=== PATIENT | female | born 1960 | race Caucasian/White ===

== ENCOUNTER 2025-02-01 20:08 | Inpatient (IN) | payer MEDICARE, MEDICAID, SELFPAY ==
--- NOTE | ~2025-02-01 | CT_ITS ---
CLINICAL HISTORY: Unwitnessed fall CT cervical spine without contrast Comparison: None Findings: Normal limited view of the intracranial contents. Soft tissues of the neck are normal. Lung apices are normal. 3 mm anterolisthesis C3 on C4 appears degenerative in nature. Otherwise, maintained vertebral body alignment. No fractures or dislocations. Diffuse degenerative disc changes are present C3-C7. Bilateral facet arthropathy is present.. Impression: 1. No cervical vertebral fracture or traumatic malalignment. This document has been electronically signed by: Jack Toure MD on 03/03/2025 15:48:14
--- NOTE | ~2025-02-01 | XR_ITS ---
EXAMINATION: XR LUMBOSACRAL SPINE CLINICAL INFORMATION: chronic low back pain COMPARISON: None available. TECHNIQUE: Three views of the lumbosacral spine. FINDINGS: Moderate atherosclerotic calcifications are present in the aorta and common iliac arteries. There are moderate degenerative changes in the SI joints. There are 5 nonrib-bearing lumbar segments. There is 31 degrees dextroscoliosis of thoracolumbar junction and 20 degrees levoscoliosis in the lumbar spine. T12-L1: There is mild disc space narrowing. L1-L2: There is mild to moderate disc space narrowing with endplate sclerosis and osteophytes L2-L3: There is mild disc space narrowing and subtle retrolisthesis with endplate osteophytes.. There is minimal right lateral listhesis L3-L4: There is mild grade 1 retrolisthesis with mild disc space narrowing and endplate sclerosis with osteophytes. L4-L5: There is moderate disc space narrowing and endplate sclerosis. There is grade 1 anterolisthesis and facet sclerosis. L5-S1: There is mild disc space narrowing with endplate osteophytes and facet sclerosis. XR/XR lumbar spine 2-3V IMPRESSION: Moderate S-shaped scoliosis with multilevel degenerative disc disease and facet osteoarthritis. Additionally, there is grade 1 anterolisthesis at L4-5. Electronically signed by: Mitesh Bueno MD 03/06/2025 12:19 PM KARL
--- NOTE | ~2025-02-01 | MR_ITS ---
EXAMINATION: MR BRAIN WITHOUT CONTRAST CLINICAL INFORMATION: Rule out dementia . Multiple head injury history, altered mental status. COMPARISON: None available. TECHNIQUE: MRI of the brain was obtained using routine sequences without contrast. Examination performed on a 1.5 Kari Siemens high-field unit. FINDINGS: There is no diffusion restriction. There is no intracranial hemorrhage, acute infarction, mass effect, or edema. Ventricles, sulci, and cisterns are mildly diffusely prominent, in keeping with mildly age advanced cerebral and cerebellar volume loss. No hydrocephalus. No shift of midline. No abnormal hemosiderin deposition is identified. There are a few scattered punctate foci of white matter T2 hyperintensity in the periventricular, subcortical, and hemispheric deep white matter. These foci are nonspecific but statistically most likely relate to small vessel ischemic changes. Midline structures appear normally formed. The pituitary gland appears normal. Posterior fossa structures appear normal. Cerebellar tonsils are appropriately located. Major flow voids are preserved within the skull base. The globes and orbital contents demonstrate no abnormalities. Paranasal sinuses are clear bilaterally. The mastoids and tympanic cavities are normally aerated. Extracranial soft tissues demonstrate no abnormalities. No suspicious bone marrow changes are evident. Atlantoaxial joint is normal. MR/MR head/brain wo con IMPRESSION: 1. No evidence of intracranial hemorrhage, acute infarction, mass effect, or edema. 2. Mildly age advanced cerebral and cerebellar volume loss. 3. Mild changes of small vessel ischemia. Electronically signed by: Freeman López MD 02/09/2025 04:20 PM EDT
--- NOTE | ~2025-02-01 | CT_ITS ---
CLINICAL HISTORY: Unwitnessed fall CT head without contrast Comparison: 02/15/2025 Findings: No intracranial mass, midline shift, hydrocephalus, or acute hemorrhage. No CT evidence of acute ischemia. Visualized paranasal sinuses and mastoid air cells normal. Orbits unremarkable. No skull fracture. Impression: 1. No acute intracranial abnormalities. This document has been electronically signed by: Jack Toure MD on 03/03/2025 15:43:46
--- NOTE | ~2025-02-01 | NM_ITS ---
EXAMINATION: NEUROLITE SPECT BRAIN SCAN CLINICAL INFORMATION: Severe cognitive dysfunction. COMPARISON: MRI brain 02/09/2025 TECHNIQUE: Following intravenous administration of 30 mCi of 99m technetium Neurolite, brain SPECT and CT imaging was obtained 30 minutes post injection. DLP 196. Color fusion with CT was performed on a separate workstation. FINDINGS: On brain SPECT imaging there is slight decreased bilateral frontal perfusion activity left greater than right which corresponds to bifrontal volume loss on recent MRI brain exam. There is mild decreased activity in left thalamus, left jeremy and midbrain. There is symmetrical perfusion in bilateral cerebellar hemispheres, bilateral occipital, temporal and posterior parietal lobes. On CT the lateral ventricles are symmetrical and slightly enlarged. The baez to white matter differentiation and bilateral cerebral hemispheres maintain normal. No acute bleed or acute infarction in evolution seen. No abnormality seen in the posterior fossa. No gross bony abnormality seen. The sinuses and mastoid air cells are well-aerated and clear. Mild deviation nasal septum to the left is noted. NM/NM brain SPECT IMPRESSION: Decreased bifrontal perfusion greater on the left side. Decrease perfusion in left thalamus, left jeremy and midbrain. This could be secondary to patient being dominant right handed. CT reveals no acute intracranial process. There is however mild bilateral frontal volume loss. Electronically signed by: Jose Luis Gardiner MD 02/16/2025 11:15 AM EDT
[2025-02-01 21:35] VITALS: BP 185/92; PULSE 82
--- NOTE | 2025-02-01 21:41 | PC.ADMIT ---
patient arrived on unit 02/01/25 at 2030 on a stretch with a 12b. she knows her name, time of year and that he came from [facility] but was otherwise very confused, patient presented with SI with plan to OD on medications. Patient states she had no intention of following through with it, she was anxious, cooperative with admission, skin clear with no edema or bruises, VS 185/92, HR 82, r 18, SAO2 97%@RA, 97f, Medical: HTN, Chronic Pain, , COPD, GERD, Hyperlipidemia, PSYCH: Depression with Aniety, Mood d/o, she ate dinner, was oriented to unit, took HD medications and went to bed
--- NOTE | 2025-02-01 21:46 | HE.PHANOTE ---
RE: METHADONE DOSING Last dose of methadone 27 mg was given @0813 on 02/01/25 per Marge Dean RN at [facility].
[2025-02-01 22:55] VITALS: BMI 22.0
[2025-02-02 08:00] VITALS: BP 143/91; PULSE 67; RESP 16; TEMP 36.6; O2SAT 93
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
[2025-02-02 08:34] LABS: Hemoglobin A1C 121.3681 umol/L
[2025-02-02 09:05] LABS: Alanine Aminotransferase 6 U/L (0-31); Albumin Level 3.3 g/dL (3.5-5.0); Alkaline Phosphatase 51 U/L (39-117); Anion Gap 10 (12-20); Aspartate Amino Transferase 21 U/L (5-31); Blood Urea Nitrogen 18 mg/dL (9-16); Calcium 8.8 mg/dL (8.4-10.2); Carbon Dioxide 25 mmol/L (22-29); Chloride 112 mmol/L (96-108); Cholesterol 143 mg/dL (<200); Creatinine Clr Calc Pharmacy 49.7; Estimated Glomerular Filt Rate > 60; HDL Cholesterol 46 mg/dL (>40); Potassium 3.7 mmol/L (3.3-5.1); Sodium 143 mmol/L (135-145); Total Protein 5.5 g/dL (6.5-8.0); Triglycerides 75 mg/dL (<150)
[2025-02-02 09:13] LABS: Thyroid Stimulating Hormone 0.90 uIU/mL (0.32-4.0)
[2025-02-02] MEDS: methADONE HCl 20 MG/2 ML ORAL.CONC 25 MG PO (09:23)
[2025-02-02 09:31] LABS: Folate 6.1 ng/mL (> or = 4.0); Vitamin B12 1479 pg/mL (200-900)
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
--- NOTE | 2025-02-02 16:21 | P.PNPSI_ITS ---
Subjective Subjective Reason For Visit: F05.8, F31.81 Diagnostics Vital Signs (24Hr): Vital Signs - 24 hr 02/01/25 21:35 02/02/25 08:00 Temperature 97.9 F Pulse Rate 82 67 Respiratory Rate 16 Blood Pressure 185/92 H 143/91 H Pulse Oximetry 93 BMI result Body Mass Index 22.0 Labs 02/02/25 07:36 Labs: Laboratory Results - last 48 hr 02/02/25 07:36 Sodium 143 Potassium 3.7 Chloride 112 H Carbon Dioxide 25 Anion Gap 10 L BUN 18 H Creatinine 0.92 Estim Creat Clear Calc 49.7 Estimated GFR > 60 Random Glucose 75 Estimat Average Glucose 123 Hemoglobin A1c % 5.9 Calcium 8.8 Total Bilirubin 0.2 AST 21 ALT 6 Alkaline Phosphatase 51 Total Protein 5.5 L Albumin 3.3 L Triglycerides 75 Cholesterol 143 LDL Cholesterol, Calc 82 HDL Cholesterol 46 Vitamin B12 1479 H Folate 6.1 TSH 0.90 Medications Medications Current Medications Acetaminophen (Acetaminophen 325 Mg Tablet) 650 mg PO Q6H PRN PRN Reason: Headache/Pain, Scale 1-10 Al Hydroxide/Mg Hydroxide (Magnesium Hydrox/Alum Hydrox 30 Ml Oral.Susp) 30 ml PO Q6H PRN PRN Reason: Heartburn/Nausea Albuterol Sulfate (Albuterol Sulfate 90 Mcg 8 Gm Inhaler) 2 puff INHALE Q4H PRN PRN Reason: Wheezing Atorvastatin Calcium (Atorvastatin Calcium 80 Mg Tablet) 80 mg PO DAILY [facility] Last Admin: 02/02/25 09:34 Dose: 80 mg Clonazepam (Clonazepam 0.5 Mg Tablet) 0.5 mg PO BID PRN PRN Reason: Anxiety Last Admin: 02/02/25 09:34 Dose: 0.5 mg Clonidine HCl (Clonidine Hcl 0.2 Mg Tablet) 0.2 mg PO TID PRN; Protocol PRN Reason: Anxiety Gabapentin (Gabapentin 600 Mg Tablet) 600 mg PO TID [facility] Last Admin: 02/02/25 15:21 Dose: 600 mg Hydroxyzine HCl (Hydroxyzine Hcl 25 Mg Tablet) 25 mg PO Q6H PRN PRN Reason: mild anxiety Magnesium Hydroxide (Milk Of Magnesia 30 Ml Oral.Susp) 30 ml PO DAILY PRN PRN Reason: Constipation Methadone HCl (Methadone Hcl 20 Mg/2 Ml Oral.Conc) 25 mg PO DAILY [facility] Last Admin: 02/02/25 09:23 Dose: 25 mg Omeprazole (Omeprazole 20 Mg Capsule.) 20 mg PO BID@0630,1630 [facility] Propranolol HCl (Propranolol Hcl 20 Mg Tablet) 20 mg PO BID [facility]; Protocol Last Admin: 02/02/25 09:23 Dose: 20 mg Spironolactone (Spironolactone 25 Mg Tablet) 50 mg PO DAILY [facility]; Protocol Last Admin: 02/02/25 09:34 Dose: 50 mg Trazodone HCl (Trazodone Hcl 50 Mg Tablet) 50 mg PO BEDTIME MRX1 PRN PRN Reason: Insomnia Valsartan (Valsartan 80 Mg Tablet) 80 mg PO DAILY [facility]; Protocol Last Admin: 02/02/25 09:34 Dose: 80 mg Allergies Allergies Allergy/AdvReac Type Severity Reaction Status Date / Time ceftriaxone (From [facility]) AdvReac Severe Unknown Verified 02/01/25 20:31 lithium AdvReac Severe Unknown Verified 02/01/25 20:30 tiotropium AdvReac Severe Unknown Verified 02/01/25 20:31 trazodone AdvReac Severe Unknown Verified 02/01/25 20:30 quetiapine AdvReac Intermediate Unknown Verified 02/01/25 20:29 nefazodone AdvReac Unknown Verified 02/01/25 20:29 Assessment & Plan Assessment & Plan (1) Delirium due to medical condition with behavioral disturbance: Status: Acute Code(s): F05 - Delirium due to known physiological condition (2) Bipolar disorder, most recent episode depressed: Status: Acute Code(s): F31.30 - Bipolar disorder, current episode depressed, mild or moderate severity, unspecified (3) Suicide attempt by drug overdose: Status: Acute Code(s): T50.902A - Poisoning by unspecified drugs, medicaments and biological substances, intentional self-harm, initial encounter Plan Ms. Rodriguez is a 64 yo F with h/o bipolar d/o, anxiety, prior suicide attempts, chronic pain on methadone, HTN, SIADH, neuropathy, HLD & COPD who presented to [facility] ED after intentional o/d on propranolol, clonidine, and clonazepam. She was transferred to [facility] for tx of depression. Per [facility] notes, delirium has improved. She is confused today. She does not have capacity to sign a CV due to her confused state. Plan: Admitted to [facility] psych unit for safety and stabilization Legal Status: 12B, given lack of capacity to sign a CV in setting of delirium Meds: Resume valproic acid 1000 mg qhs and olanzapine at 7.5 mg qhs + 7.5 mg bid prn for agitation (started at [facility]) Will lower clonazepam dose from home dose of .5 mg bid prn to 0.25 mg bid prn for now, given pt's ongoing confusion. Dose can be titrated back up to .5 mg when mental status improves if clinically appropriate. Continue home meds including: clonidine .2 mg tid prn for anxiety with holding parameters gabapentin 600 mg tid (for chronic pain) methadone 27 mg qd (rx'd for chronic pain) pantoprazole 40 mg bid propranolol 20- mg bid spironolactone 50 mg qd valsartan 80 mg qd albuterol 90 mcg 2 puff q 4 hrs prn for wheezing atorvastatin 80 mg qd Ordered EKG to monitor QTc (had been prolonged at [facility] and then normalized) [facility] Can check VPA level on Wednesday am. Pt didn't receive it last night, was started on VPA at [facility] Obtain collateral information from family/providers Discharge planning Patient educated on: diagnosis Time Spent With Patient Time: Total time managing care of this patient today ____ minutes.
[2025-02-02 17:39] LABS: Ammonia 19 umol/L (13-55)
[2025-02-02 20:00] VITALS: BP 149/79; PULSE 66; RESP 16; TEMP 36.6; O2SAT 95
[2025-02-02 21:05] VITALS: BP 149/79; PULSE 68
[2025-02-03 08:00] VITALS: BP 151/96; PULSE 72; RESP 16; TEMP 36.2; O2SAT 99
[2025-02-03] MEDS: methADONE HCl 20 MG/2 ML ORAL.CONC 25 MG PO (08:05)
--- NOTE | 2025-02-03 16:25 | P.PNPSI_ITS ---
Subjective Subjective Date of Service: 02/03/25 Reason For Visit: F05.8, F31.81 Interim History: met with patient; discussed with team Patient pleasant on approach. Denies any SI and reports that she is doing very good.. Patient talks about when discharged wants to be placed somewhere closer to [facility], near her family Mental Status Exam Mental Status Exam Narrative: Appearance: Lying in bed awake. Dressed in casual attire. Good eye contact. Attitude: Cooperative, pleasant Speech: Occasional latency/word finding difficulty, otherwise within normal limits Motor activity: Calm and without any tics, tremors or dyskinesias. Mood: Very good Affect: calm Thought process: Goal oriented; answering questions appropriately Thought content: ; denies SI; wanting to be near family Perception: Does not appear to respond to internal stimuli Alert/oriented to person, being at a hospital Memory- not fully tested. Impaired for recent events Insight: impaired Judgment: impaired Diagnostics Vital Signs (24Hr): Vital Signs - 24 hr 02/02/25 20:00 02/02/25 21:05 02/03/25 08:00 Temperature 97.9 F 97.2 F Pulse Rate 66 68 72 Respiratory Rate 16 16 Blood Pressure 149/79 H 149/79 H 151/96 H Pulse Oximetry 95 99 Oxygen Delivery Method Room Air Room Air BMI result Body Mass Index 22.0 Labs 02/02/25 07:36 Labs: Laboratory Results - last 48 hr 02/02/25 02/02/25 07:36 17:25 Sodium 143 Potassium 3.7 Chloride 112 H Carbon Dioxide 25 Anion Gap 10 L BUN 18 H Creatinine 0.92 Estim Creat Clear Calc 49.7 Estimated GFR > 60 Random Glucose 75 Estimat Average Glucose 123 Hemoglobin A1c % 5.9 Calcium 8.8 Total Bilirubin 0.2 AST 21 ALT 6 Alkaline Phosphatase 51 Ammonia 19 Total Protein 5.5 L Albumin 3.3 L Triglycerides 75 Cholesterol 143 LDL Cholesterol, Calc 82 HDL Cholesterol 46 Vitamin B12 1479 H Folate 6.1 TSH 0.90 Medications Medications Current Medications Acetaminophen (Acetaminophen 325 Mg Tablet) 650 mg PO Q6H PRN PRN Reason: Headache/Pain, Scale 1-10 Last Admin: 02/02/25 23:55 Dose: 650 mg Al Hydroxide/Mg Hydroxide (Magnesium Hydrox/Alum Hydrox 30 Ml Oral.Susp) 30 ml PO Q6H PRN PRN Reason: Heartburn/Nausea Albuterol Sulfate (Albuterol Sulfate 90 Mcg 8 Gm Inhaler) 2 puff INHALE Q4H PRN PRN Reason: Wheezing Atorvastatin Calcium (Atorvastatin Calcium 80 Mg Tablet) 80 mg PO DAILY [facility] Last Admin: 02/03/25 08:07 Dose: 80 mg Clonazepam (Clonazepam 0.5 Mg Tablet) 0.25 mg PO BID PRN PRN Reason: Anxiety Last Admin: 02/03/25 08:06 Dose: 0.25 mg Clonidine HCl (Clonidine Hcl 0.2 Mg Tablet) 0.2 mg PO TID PRN; Protocol PRN Reason: Anxiety Divalproex Sodium (Divalproex Sodium Er 500 Mg Tab.Er.24h) 1,000 mg PO BEDTIME [facility] Last Admin: 02/02/25 21:06 Dose: 1,000 mg Gabapentin (Gabapentin 600 Mg Tablet) 600 mg PO TID [facility] Last Admin: 02/03/25 14:15 Dose: 600 mg Magnesium Hydroxide (Milk Of Magnesia 30 Ml Oral.Susp) 30 ml PO DAILY PRN PRN Reason: Constipation Methadone HCl (Methadone Hcl 20 Mg/2 Ml Oral.Conc) 25 mg PO DAILY [facility] Last Admin: 02/03/25 08:05 Dose: 25 mg Olanzapine (Olanzapine 7.5 Mg Tablet) 7.5 mg PO BEDTIME PRN PRN Reason: agitation Olanzapine (Olanzapine 2.5 Mg Tablet) 7.5 mg PO BID [facility] Last Admin: 02/03/25 08:06 Dose: 7.5 mg Omeprazole (Omeprazole 20 Mg Capsule.Dr) 20 mg PO BID@0630,1630 [facility] Last Admin: 02/03/25 16:00 Dose: 20 mg Propranolol HCl (Propranolol Hcl 20 Mg Tablet) 20 mg PO BID [facility]; Protocol Last Admin: 02/03/25 09:52 Dose: Not Given Spironolactone (Spironolactone 25 Mg Tablet) 50 mg PO DAILY [facility]; Protocol Last Admin: 02/03/25 08:06 Dose: 50 mg Trazodone HCl (Trazodone Hcl 50 Mg Tablet) 50 mg PO BEDTIME MRX1 PRN PRN Reason: Insomnia Valsartan (Valsartan 80 Mg Tablet) 80 mg PO DAILY [facility]; Protocol Last Admin: 02/03/25 08:07 Dose: 80 mg Allergies Allergies Allergy/AdvReac Type Severity Reaction Status Date / Time ceftriaxone (From [facility]) AdvReac Severe Unknown Verified 02/01/25 20:31 lithium AdvReac Severe Unknown Verified 02/01/25 20:30 tiotropium AdvReac Severe Unknown Verified 02/01/25 20:31 trazodone AdvReac Severe Unknown Verified 02/01/25 20:30 quetiapine AdvReac Intermediate Unknown Verified 02/01/25 20:29 nefazodone AdvReac Unknown Verified 02/01/25 20:29 Assessment & Plan Assessment & Plan (1) Delirium due to medical condition with behavioral disturbance: Status: Acute Code(s): F05 - Delirium due to known physiological condition (2) Bipolar disorder, most recent episode depressed: Status: Acute Code(s): F31.30 - Bipolar disorder, current episode depressed, mild or moderate severity, unspecified (3) Suicide attempt by drug overdose: Status: Acute Code(s): T50.902A - Poisoning by unspecified drugs, medicaments and biological substances, intentional self-harm, initial encounter Plan Ms. Rodriguez is a 64 yo F with h/o bipolar d/o, anxiety, prior suicide attempts, chronic pain on methadone, HTN, SIADH, neuropathy, HLD & COPD who presented to [facility] ED after intentional o/d on propranolol, clonidine, and clonazepam. She was transferred to [facility] psych unit for tx of depression. Per [facility] notes, delirium has improved. She is confused today. She does not have capacity to sign a CV due to her confused state. Plan: Admitted to [facility] psych [facility] for safety and stabilization Legal Status: 12B, given lack of capacity to sign a CV in setting of delirium Meds: Resume valproic acid 1000 mg qhs and olanzapine at 7.5 mg qhs + 7.5 mg bid prn for agitation (started at [facility]) Will lower clonazepam dose from home dose of .5 mg bid prn to 0.25 mg bid prn for now, given pt's ongoing confusion. Dose can be titrated back up to .5 mg when mental status improves if clinically appropriate. Continue home meds including: clonidine .2 mg tid prn for anxiety with holding parameters gabapentin 600 mg tid (for chronic pain) methadone 27 mg qd (rx'd for chronic pain) pantoprazole 40 mg bid propranolol 20- mg bid spironolactone 50 mg qd valsartan 80 mg qd albuterol 90 mcg 2 puff q 4 hrs prn for wheezing atorvastatin 80 mg qd Ordered EKG to monitor QTc (had been prolonged at [facility] and then normalized) Ordered ammonia level with the Depakote. Can check VPA level on Wednesday am. Pt didn't receive it last night, was started on VPA at [facility] Obtain collateral information from family/providers Discharge planning Patient educated on: diagnosis Informed Consent: understands, does not understand and further education needed Reason for continued inpatient stay Substantial Risk for: inability to function Time Spent With Patient Time: Total time managing care of this patient today ____ minutes.
[2025-02-03 20:00] VITALS: BP 181/97; PULSE 90; TEMP 36.1; O2SAT 98
[2025-02-03 20:26] VITALS: BP 181/97; PULSE 90
[2025-02-04 07:55] VITALS: BP 160/100; PULSE 80; RESP 18; TEMP 36.6; O2SAT 98
[2025-02-04] MEDS: methADONE HCl 20 MG/2 ML ORAL.CONC 25 MG PO (08:39)
[2025-02-04 10:20] VITALS: BP 180/98
[2025-02-04 19:40] VITALS: BP 120/83; PULSE 51; RESP 17; TEMP 36.9; O2SAT 99
[2025-02-04 20:29] VITALS: BP 120/83
--- NOTE | 2025-02-04 22:21 | HO.PSYCHPN ---
Subjective Subjective Date of Service: 02/04/25 Reason For Visit: F05.8, F31.81 Interim History: Met with patient; discussed with team No change in presentation. Patient lying in bed awake; pleasant on approach. Talks about hoping to end up near family. Asks what time of day it is and when told 06:00, asks if it 6 in the morning her 6 at night Mental Status Exam Mental Status Exam Narrative: Appearance: Lying in bed awake. Dressed in casual attire. Good eye contact. Attitude: Cooperative, pleasant Speech: Occasional latency/word finding difficulty, otherwise within normal limits Motor activity: Calm and without any tics, tremors or dyskinesias. Mood: good Affect: calm Thought process: Goal oriented; answering questions appropriately Thought content: ; denies SI; wanting to be near family Perception: Does not appear to respond to internal stimuli Alert/oriented to person, being at a hospital; not to time Memory- not fully tested. Impaired for recent events Insight: impaired Judgment: impaired Diagnostics Vital Signs (24Hr): Vital Signs - 24 hr 02/04/25 07:55 02/04/25 10:20 02/04/25 19:40 Temperature 97.9 F 98.4 F Pulse Rate 80 51 Respiratory Rate 18 17 Blood Pressure 160/100 H 180/98 H 120/83 Pulse Oximetry 98 99 Oxygen Delivery Method Room Air Room Air 02/04/25 20:29 Temperature Pulse Rate Respiratory Rate Blood Pressure 120/83 Pulse Oximetry Oxygen Delivery Method BMI result Body Mass Index 22.0 Labs 02/02/25 07:36 Medications Medications Current Medications Acetaminophen (Acetaminophen 325 Mg Tablet) 650 mg PO Q6H PRN PRN Reason: Headache/Pain, Scale 1-10 Last Admin: 02/02/25 23:55 Dose: 650 mg Al Hydroxide/Mg Hydroxide (Magnesium Hydrox/Alum Hydrox 30 Ml Oral.Susp) 30 ml PO Q6H PRN PRN Reason: Heartburn/Nausea Albuterol Sulfate (Albuterol Sulfate 90 Mcg 8 Gm Inhaler) 2 puff INHALE Q4H PRN PRN Reason: Wheezing Atorvastatin Calcium (Atorvastatin Calcium 80 Mg Tablet) 80 mg PO DAILY [facility] Last Admin: 02/04/25 08:42 Dose: 80 mg Clonazepam (Clonazepam 0.5 Mg Tablet) 0.25 mg PO BID PRN PRN Reason: Anxiety Last Admin: 02/04/25 20:30 Dose: 0.25 mg Clonidine HCl (Clonidine Hcl 0.2 Mg Tablet) 0.2 mg PO TID PRN; Protocol PRN Reason: Anxiety Last Admin: 02/04/25 10:20 Dose: 0.2 mg Divalproex Sodium (Divalproex Sodium Er 500 Mg Tab.Er.24h) 1,000 mg PO BEDTIME [facility] Last Admin: 02/04/25 20:29 Dose: 1,000 mg Gabapentin (Gabapentin 600 Mg Tablet) 600 mg PO TID [facility] Last Admin: 02/04/25 20:30 Dose: 600 mg Magnesium Hydroxide (Milk Of Magnesia 30 Ml Oral.Susp) 30 ml PO DAILY PRN PRN Reason: Constipation Methadone HCl (Methadone Hcl 20 Mg/2 Ml Oral.Conc) 25 mg PO DAILY [facility] Last Admin: 02/04/25 08:39 Dose: 25 mg Olanzapine (Olanzapine 7.5 Mg Tablet) 7.5 mg PO BEDTIME PRN PRN Reason: agitation Olanzapine (Olanzapine 2.5 Mg Tablet) 7.5 mg PO BID [facility] Last Admin: 02/04/25 20:29 Dose: 7.5 mg Omeprazole (Omeprazole 20 Mg Capsule.Dr) 20 mg PO BID@0630,1630 [facility] Last Admin: 02/04/25 16:07 Dose: 20 mg Propranolol HCl (Propranolol Hcl 20 Mg Tablet) 20 mg PO BID [facility]; Protocol Last Admin: 02/04/25 20:29 Dose: 20 mg Spironolactone (Spironolactone 25 Mg Tablet) 50 mg PO DAILY [facility]; Protocol Last Admin: 02/04/25 08:42 Dose: 50 mg Trazodone HCl (Trazodone Hcl 50 Mg Tablet) 50 mg PO BEDTIME MRX1 PRN PRN Reason: Insomnia Valsartan (Valsartan 80 Mg Tablet) 80 mg PO DAILY [facility]; Protocol Last Admin: 02/04/25 08:40 Dose: 80 mg Allergies Allergies Allergy/AdvReac Type Severity Reaction Status Date / Time ceftriaxone (From [facility]) AdvReac Severe Unknown Verified 02/01/25 20:31 lithium AdvReac Severe Unknown Verified 02/01/25 20:30 tiotropium AdvReac Severe Unknown Verified 02/01/25 20:31 trazodone AdvReac Severe Unknown Verified 02/01/25 20:30 quetiapine AdvReac Intermediate Unknown Verified 02/01/25 20:29 nefazodone AdvReac Unknown Verified 02/01/25 20:29 Assessment & Plan Assessment & Plan (1) Delirium due to medical condition with behavioral disturbance: Status: Acute Code(s): F05 - Delirium due to known physiological condition (2) Bipolar disorder, most recent episode depressed: Status: Acute Code(s): F31.30 - Bipolar disorder, current episode depressed, mild or moderate severity, unspecified (3) Suicide attempt by drug overdose: Status: Acute Code(s): T50.902A - Poisoning by unspecified drugs, medicaments and biological substances, intentional self-harm, initial encounter Plan Ms. Rodriguez is a 64 yo F with h/o bipolar d/o, anxiety, prior suicide attempts, chronic pain on methadone, HTN, SIADH, neuropathy, HLD & COPD who presented to [facility] ED after intentional o/d on propranolol, clonidine, and clonazepam. She was transferred to [facility] psych unit for tx of depression. Per [facility] notes, delirium has improved. She is confused today. She does not have capacity to sign a CV due to her confused state. Hospital course: 02/04 continue current treatment plan Plan: Admitted to [facility] psych unit for safety and stabilization Legal Status: 12B, given lack of capacity to sign a CV in setting of delirium Meds: Resume valproic acid 1000 mg qhs and olanzapine at 7.5 mg qhs + 7.5 mg bid prn for agitation (started at [facility]) Will lower clonazepam dose from home dose of .5 mg bid prn to 0.25 mg bid prn for now, given pt's ongoing confusion. Dose can be titrated back up to .5 mg when mental status improves if clinically appropriate. Continue home meds including: clonidine .2 mg tid prn for anxiety with holding parameters gabapentin 600 mg tid (for chronic pain) methadone 27 mg qd (rx'd for chronic pain) pantoprazole 40 mg bid propranolol 20- mg bid spironolactone 50 mg qd valsartan 80 mg qd albuterol 90 mcg 2 puff q 4 hrs prn for wheezing atorvastatin 80 mg qd Ordered EKG to monitor QTc (had been prolonged at [facility] and then normalized) Ordered ammonia level with the Depakote. Can check VPA level on Wednesday am. Pt didn't receive it last night, was started on VPA at [facility] Obtain collateral information from family/providers Discharge planning Reason for continued inpatient stay Substantial Risk for: inability to function Time Spent With Patient Time: Total time managing care of this patient today ____ minutes.
[2025-02-05 08:00] VITALS: BP 111/58; PULSE 51; RESP 14; TEMP 36.7; O2SAT 98
[2025-02-05] MEDS: methADONE HCl 20 MG/2 ML ORAL.CONC 25 MG PO (08:32)
--- NOTE | 2025-02-05 14:25 | HO.PSYCHPN ---
Subjective Subjective Date of Service: 02/05/25 Reason For Visit: F05.8, F31.81 Interim History: Met with patient; discussed with team No change in presentation. Patient says she wants to end up near the [facility] so she can be close to family. Patient asked how long she will have to remain in the hospital and is frustrated she can talk to social work today. Security Operations Manager explained which patient accepted Mental Status Exam Mental Status Exam Narrative: Appearance: Lying in bed awake. Dressed in casual attire. Good eye contact. Attitude: Cooperative, pleasant Speech: Occasional latency/word finding difficulty, otherwise within normal limits Motor activity: Calm and without any tics, tremors or dyskinesias. Mood: Stable Affect: calm Thought process: Goal oriented; answering questions appropriately Thought content: ; denies SI; wanting to be near family Perception: Does not appear to respond to internal stimuli Alert/oriented to person, being at a hospital; not to time Memory- not fully tested. Impaired for recent events Insight: impaired Judgment: impaired Diagnostics Vital Signs (24Hr): Vital Signs - 24 hr 02/04/25 19:40 02/04/25 20:29 02/05/25 08:00 Temperature 98.4 F 98.1 F Pulse Rate 51 51 Respiratory Rate 17 14 Blood Pressure 120/83 120/83 111/58 L Pulse Oximetry 99 98 Oxygen Delivery Method Room Air Room Air BMI result Body Mass Index 22.0 Labs 02/02/25 07:36 Medications Medications Current Medications Acetaminophen (Acetaminophen 325 Mg Tablet) 650 mg PO Q6H PRN PRN Reason: Headache/Pain, Scale 1-10 Last Admin: 02/02/25 23:55 Dose: 650 mg Al Hydroxide/Mg Hydroxide (Magnesium Hydrox/Alum Hydrox 30 Ml Oral.Susp) 30 ml PO Q6H PRN PRN Reason: Heartburn/Nausea Albuterol Sulfate (Albuterol Sulfate 90 Mcg 8 Gm Inhaler) 2 puff INHALE Q4H PRN PRN Reason: Wheezing Atorvastatin Calcium (Atorvastatin Calcium 80 Mg Tablet) 80 mg PO DAILY [facility] Last Admin: 02/05/25 08:39 Dose: 80 mg Clonazepam (Clonazepam 0.5 Mg Tablet) 0.25 mg PO BID PRN PRN Reason: Anxiety Last Admin: 02/04/25 20:30 Dose: 0.25 mg Clonidine HCl (Clonidine Hcl 0.2 Mg Tablet) 0.2 mg PO TID PRN; Protocol PRN Reason: Anxiety Last Admin: 02/04/25 10:20 Dose: 0.2 mg Divalproex Sodium (Divalproex Sodium Er 500 Mg Tab.Er.24h) 1,000 mg PO BEDTIME [facility] Last Admin: 02/04/25 20:29 Dose: 1,000 mg Gabapentin (Gabapentin 600 Mg Tablet) 600 mg PO TID [facility] Last Admin: 02/05/25 08:39 Dose: 600 mg Magnesium Hydroxide (Milk Of Magnesia 30 Ml Oral.Susp) 30 ml PO DAILY PRN PRN Reason: Constipation Methadone HCl (Methadone Hcl 20 Mg/2 Ml Oral.Conc) 25 mg PO DAILY [facility] Last Admin: 02/05/25 08:32 Dose: 25 mg Olanzapine (Olanzapine 7.5 Mg Tablet) 7.5 mg PO BEDTIME PRN PRN Reason: agitation Olanzapine (Olanzapine 2.5 Mg Tablet) 7.5 mg PO BID [facility] Last Admin: 02/05/25 08:39 Dose: 7.5 mg Omeprazole (Omeprazole 20 Mg Capsule.Dr) 20 mg PO BID@0630,1630 [facility] Last Admin: 02/05/25 06:27 Dose: 20 mg Propranolol HCl (Propranolol Hcl 20 Mg Tablet) 20 mg PO BID [facility]; Protocol Last Admin: 02/05/25 08:39 Dose: 20 mg Spironolactone (Spironolactone 25 Mg Tablet) 50 mg PO DAILY [facility]; Protocol Last Admin: 02/05/25 08:38 Dose: 50 mg Trazodone HCl (Trazodone Hcl 50 Mg Tablet) 50 mg PO BEDTIME MRX1 PRN PRN Reason: Insomnia Valsartan (Valsartan 80 Mg Tablet) 80 mg PO DAILY [facility]; Protocol Last Admin: 02/05/25 08:38 Dose: 80 mg Allergies Allergies Allergy/AdvReac Type Severity Reaction Status Date / Time ceftriaxone (From [facility]) AdvReac Severe Unknown Verified 02/01/25 20:31 lithium AdvReac Severe Unknown Verified 02/01/25 20:30 tiotropium AdvReac Severe Unknown Verified 02/01/25 20:31 trazodone AdvReac Severe Unknown Verified 02/01/25 20:30 quetiapine AdvReac Intermediate Unknown Verified 02/01/25 20:29 nefazodone AdvReac Unknown Verified 02/01/25 20:29 Assessment & Plan Assessment & Plan (1) Delirium due to medical condition with behavioral disturbance: Status: Acute Code(s): F05 - Delirium due to known physiological condition (2) Bipolar disorder, most recent episode depressed: Status: Acute Code(s): F31.30 - Bipolar disorder, current episode depressed, mild or moderate severity, unspecified (3) Suicide attempt by drug overdose: Status: Acute Code(s): T50.902A - Poisoning by unspecified drugs, medicaments and biological substances, intentional self-harm, initial encounter Plan Ms. Rodriguez is a 64 yo F with h/o bipolar d/o, anxiety, prior suicide attempts, chronic pain on methadone, HTN, SIADH, neuropathy, HLD & COPD who presented to [facility] ED after intentional o/d on propranolol, clonidine, and clonazepam. She was transferred [place] [facility] for tx of depression. Per [facility] notes, delirium has improved. She is confused today. She does not have capacity to sign a CV due to her confused state. Hospital course: 02/04 continue current treatment plan 02/05 continue treatment plan Plan: Admitted to [facility] for safety and stabilization Legal Status: 12B, given lack of capacity to sign a CV in setting of delirium Meds: Resume valproic acid 1000 mg qhs and olanzapine at 7.5 mg qhs + 7.5 mg bid prn for agitation (started at [facility]) Will lower clonazepam dose from home dose of .5 mg bid prn to 0.25 mg bid prn for now, given pt's ongoing confusion. Dose can be titrated back up to .5 mg when mental status improves if clinically appropriate. Continue home meds including: clonidine .2 mg tid prn for anxiety with holding parameters gabapentin 600 mg tid (for chronic pain) methadone 27 mg qd (rx'd for chronic pain) pantoprazole 40 mg bid propranolol 20- mg bid spironolactone 50 mg qd valsartan 80 mg qd albuterol 90 mcg 2 puff q 4 hrs prn for wheezing atorvastatin 80 mg qd Ordered EKG to monitor QTc (had been prolonged at [facility] and then normalized) Ordered ammonia level with the Depakote. Can check VPA level on Wednesday am. Pt didn't receive it last night, was started on VPA at [facility] Obtain collateral information from family/providers Discharge planning Patient educated on: diagnosis Informed Consent: does not understand Reason for continued inpatient stay Substantial Risk for: inability to function Time Spent With Patient Time: Total time managing care of this patient today ____ minutes.
[2025-02-05 20:00] VITALS: BP 135/84; PULSE 68; RESP 20; TEMP 36.6; O2SAT 99
[2025-02-05 20:30] VITALS: BP 135/84; PULSE 68
[2025-02-06] MEDS: methADONE HCl 20 MG/2 ML ORAL.CONC 25 MG PO (08:36)
[2025-02-06 08:42] VITALS: BP 188/82; PULSE 62; RESP 14; TEMP 36.6; O2SAT 99
--- NOTE | 2025-02-06 14:03 | P.PNPSI_ITS ---
Subjective Subjective Date of Service: 02/06/25 Reason For Visit: F05.8, F31.81 Subjective Notes: Bryson Warning and Conditional Voluntary Healthcare Proxy: Yes Guardianship: No Medical Problems Affecting Mental Status: No Interim History: Medical record and nursing notes reviewed; case discussed during rounds with team/nursing staff, and met with patient for supportive therapy/psychoeducation, as well as medication management. Meet with patient in assigned room in length. Patient reports feeling less confused and is aware of what brought her here to the hospital which she was not aware of before. Report she feels scared over my thinking- repeat myself when talking about 2 prior suicide attempts in the past via OD and this is the third time. Patient cannot recall what medication she Od's on I was out of it when I came in . it is scary and I got very strange feeling . Report that she has been homeless for a couple of weeks. Report feeling anxious and report anxiety but better today. Denies SI/SIB/HI/AVH. Patient reports she gets shake when she gets anxious which is observed during assessment. Patient believes she has capacity and understand what she will sign- CV. Patient reports having negative experience with last hospitalization but feels comfortable here. Some delay and memory issues when asking about HCP, and hx of mental/psychiatric dx. Patient is aware of VPA and ammonia level for tomorrow. Visible in common area at times. Mood is tired . Medication Compliance: Yes Side effects from medications: No Attending Groups: Yes Review of Systems Acute medical concerns: No Medical Review of Systems: unchanged Review of Systems Review of Systems Denies any shortness of breath, chest pain, palpitations, dizziness, lightheadedness, headaches, dysuria, abdominal pain or discomfort, nausea, vomiting or diarrhea. Denies chills, body aches, muscle aches, fatigue or weight loss. Mental Status Exam Mental Status Exam Narrative: Appearance: Lying in bed awake. Dressed in casual attire. Good eye contact. Attitude: Cooperative, pleasant Speech: Occasional latency/word finding difficulty, otherwise within normal limits Motor activity: Calm and without any tics, tremors or dyskinesias. Mood: tired Affect: calm but anxious at times Thought process: Goal oriented; answering questions appropriately Thought content: ; denies SI Perception: Does not appear to respond to internal stimuli Alert/oriented to person, being at a hospital; month and year but not date Memory- not fully tested. Impaired for recent events Insight: impaired Judgment: impaired Diagnostics Vital Signs (24Hr): Vital Signs - 24 hr 02/05/25 20:00 02/05/25 20:30 02/06/25 08:42 Temperature 97.9 F 98 F Pulse Rate 68 68 62 Respiratory Rate 20 14 Blood Pressure 135/84 135/84 188/82 H Pulse Oximetry 99 99 Oxygen Delivery Method Room Air Room Air BMI result Body Mass Index 22.0 Labs 02/02/25 07:36 Medications Medications Current Medications Acetaminophen (Acetaminophen 325 Mg Tablet) 650 mg PO Q6H PRN PRN Reason: Headache/Pain, Scale 1-10 Last Admin: 02/05/25 15:50 Dose: 650 mg Al Hydroxide/Mg Hydroxide (Magnesium Hydrox/Alum Hydrox 30 Ml Oral.Susp) 30 ml PO Q6H PRN PRN Reason: Heartburn/Nausea Albuterol Sulfate (Albuterol Sulfate 90 Mcg 8 Gm Inhaler) 2 puff INHALE Q4H PRN PRN Reason: Wheezing Atorvastatin Calcium (Atorvastatin Calcium 80 Mg Tablet) 80 mg PO DAILY [facility] Last Admin: 02/06/25 08:44 Dose: 80 mg Clonazepam (Clonazepam 0.5 Mg Tablet) 0.25 mg PO BID PRN PRN Reason: Anxiety Last Admin: 02/05/25 20:31 Dose: 0.25 mg Clonidine HCl (Clonidine Hcl 0.2 Mg Tablet) 0.2 mg PO TID PRN; Protocol PRN Reason: Anxiety Last Admin: 02/04/25 10:20 Dose: 0.2 mg Divalproex Sodium (Divalproex Sodium Er 500 Mg Tab.Er.24h) 1,000 mg PO BEDTIME [facility] Last Admin: 02/05/25 20:29 Dose: 1,000 mg Gabapentin (Gabapentin 600 Mg Tablet) 600 mg PO TID [facility] Last Admin: 02/06/25 08:45 Dose: 600 mg Magnesium Hydroxide (Milk Of Magnesia 30 Ml Oral.Susp) 30 ml PO DAILY PRN PRN Reason: Constipation Methadone HCl (Methadone Hcl 20 Mg/2 Ml Oral.Conc) 25 mg PO DAILY [facility] Last Admin: 02/06/25 08:36 Dose: 25 mg Olanzapine (Olanzapine 7.5 Mg Tablet) 7.5 mg PO BEDTIME PRN PRN Reason: agitation Olanzapine (Olanzapine 2.5 Mg Tablet) 7.5 mg PO BID [facility] Last Admin: 02/06/25 08:44 Dose: 7.5 mg Omeprazole (Omeprazole 20 Mg Capsule.Dr) 20 mg PO BID@0630,1630 [facility] Last Admin: 02/06/25 06:29 Dose: 20 mg Propranolol HCl (Propranolol Hcl 20 Mg Tablet) 20 mg PO BID [facility]; Protocol Last Admin: 02/06/25 08:44 Dose: 20 mg Spironolactone (Spironolactone 25 Mg Tablet) 50 mg PO DAILY [facility]; Protocol Last Admin: 02/06/25 08:44 Dose: 50 mg Trazodone HCl (Trazodone Hcl 50 Mg Tablet) 50 mg PO BEDTIME MRX1 PRN PRN Reason: Insomnia Valsartan (Valsartan 80 Mg Tablet) 80 mg PO DAILY [facility]; Protocol Last Admin: 02/06/25 08:44 Dose: 80 mg Allergies Allergies Allergy/AdvReac Type Severity Reaction Status Date / Time ceftriaxone (From [facility]) AdvReac Severe Unknown Verified 02/01/25 20:31 lithium AdvReac Severe Unknown Verified 02/01/25 20:30 tiotropium AdvReac Severe Unknown Verified 02/01/25 20:31 trazodone AdvReac Severe Unknown Verified 02/01/25 20:30 quetiapine AdvReac Intermediate Unknown Verified 02/01/25 20:29 nefazodone AdvReac Unknown Verified 02/01/25 20:29 Assessment & Plan Assessment & Plan (1) Delirium due to medical condition with behavioral disturbance: Status: Acute Code(s): F05 - Delirium due to known physiological condition (2) Bipolar disorder, most recent episode depressed: Status: Acute Code(s): F31.30 - Bipolar disorder, current episode depressed, mild or moderate severity, unspecified (3) Suicide attempt by drug overdose: Status: Acute Code(s): T50.902A - Poisoning by unspecified drugs, medicaments and biological substances, intentional self-harm, initial encounter Plan Ms. Rodriguez is a 64 yo F with h/o bipolar d/o, anxiety, prior suicide attempts, chronic pain on methadone, HTN, SIADH, neuropathy, HLD & COPD who presented to [facility] ED after intentional o/d on propranolol, clonidine, and clonazepam. She was transferred to [facility] psych unit for tx of depression. Per [facility] notes, delirium has improved. She is confused today. She does not have capacity to sign a CV due to her confused state. Hospital course: 02/04 continue current treatment plan 02/05 continue treatment plan 02/06/25: Meet with patient in assigned room in length. Patient reports feeling less confused and is aware of what brought her here to the hospital which she was not aware of before. Report she feels scared over my thinking- repeat myself when talking about 2 prior suicide attempts in the past via OD and this is the third time. Patient cannot recall what medication she Od's on I was out of it when I came in . it is scary and I got very strange feeling . Report that she has been homeless for a couple of weeks. Report feeling anxious and report anxiety but better today. Denies SI/SIB/HI/AVH. Patient reports she gets shake when she gets anxious which is observed during assessment. Patient believes she has capacity and understand what she will sign- CV. Patient reports having negative experience with last hospitalization but feels comfortable here. Some delay and memory issues when asking about HCP, and hx of mental/psychiatric dx. Patient is aware of VPA and ammonia level for tomorrow. Visible in common area at times. Mood is tired . Plan: Admitted to [facility] psych unit for safety and stabilization Legal Status: 12B, given lack of capacity to sign a CV in setting of delirium Meds: Resume valproic acid 1000 mg qhs and olanzapine at 7.5 mg qhs + 7.5 mg bid prn for agitation (started at [facility]) Will lower clonazepam dose from home dose of .5 mg bid prn to 0.25 mg bid prn for now, given pt's ongoing confusion. Dose can be titrated back up to .5 mg when mental status improves if clinically appropriate. Continue home meds including: clonidine .2 mg tid prn for anxiety with holding parameters gabapentin 600 mg tid (for chronic pain) methadone 27 mg qd (rx'd for chronic pain) pantoprazole 40 mg bid propranolol 20- mg bid spironolactone 50 mg qd valsartan 80 mg qd albuterol 90 mcg 2 puff q 4 hrs prn for wheezing atorvastatin 80 mg qd Ordered EKG to monitor QTc (had been prolonged at [facility] and then normalized) Ordered ammonia level with the Depakote. Can check VPA level on Wednesday am. Pt didn't receive it last night, was started on VPA at [facility] Obtain collateral information from family/providers Discharge planning Patient educated on: diagnosis, medication risk/benefits and therapeutic strategies Informed Consent: understands and further education needed Reason for continued inpatient stay Substantial Risk for: med/psych decompensation Time Spent With Patient Time: Total time managing care of this patient today ____ minutes.
[2025-02-06 20:06] VITALS: BP 189/86; PULSE 61; RESP 17; TEMP 37.1; O2SAT 98
[2025-02-06 20:10] VITALS: BP 189/86; PULSE 61
[2025-02-07 07:55] VITALS: BP 175/88; PULSE 74; RESP 18; TEMP 36.3; O2SAT 99
[2025-02-07] MEDS: methADONE HCl 20 MG/2 ML ORAL.CONC 25 MG PO (08:48)
[2025-02-07 13:30] VITALS: BP 157/90; PULSE 69; RESP 16; TEMP 36.8; O2SAT 97
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
[2025-02-07 20:30] VITALS: PULSE 90; RESP 16; TEMP 36.7; O2SAT 97
[2025-02-07 20:37] VITALS: BP 181/113
[2025-02-07 20:40] VITALS: BP 181/113; PULSE 71
[2025-02-07 22:39] VITALS: BP 174/78
[2025-02-08 08:10] VITALS: BP 131/84; PULSE 70; RESP 16; TEMP 36.6; O2SAT 98
[2025-02-08 08:20] LABS: Ammonia 27 umol/L (13-55)
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
--- NOTE | 2025-02-08 08:28 | P.PNIM_ITS ---
Subjective Subjective Date of Service: 02/08/25 Interval History: Patient is seen in follow up for elevated blood pressures per request of psychiatry. No noted administration of p.r.n. clonidine given. Blood pressure 89/52 after her blood pressure meds were given. We will continue p.r.n. clonidine. On exam patient is alert and confused. She denies any shortness of breath or chest pain. Denies any headache or dizziness. Review of Systems Denies shortness of breath, dizziness, chest pain, abdominal pain or any other concerns Physical Exam 2 Exam: Exam: CONST: Alert and oriented, in NAD. Laying in bed. Confused. HEENT: Normocephalic, atraumatic, MMM, Eyes clear, Neck supple RESP: Lungs clear, RRR even and regular. No wheeze, no incresaed WOB. HEART:,RRR, S1, S2. No edema GI:Abdomen Soft NT, ND. + BS times four :Deferred SKIN: Warm dry and intact, no visible lesions or rashes NEURO:CN II-XII Intact bilaterally, Sensation intact. Speech clear. Ambulatory PSYCH: Flat affect Vital Signs: Vital Signs: Last Vital Signs Temp 98.1 F 02/07/25 20:30 Pulse 71 02/07/25 20:40 Resp 16 02/07/25 20:30 BP 174/78 H 02/07/25 22:39 Pulse Ox 97 02/07/25 20:30 O2 Del Method Room Air 02/07/25 20:30 BMI result Body Mass Index 22.0 Objective Data Active Medications Acetaminophen (Acetaminophen 325 Mg Tablet) 650 mg PO Q6H PRN PRN Reason: Headache/Pain, Scale 1-10 Last Admin: 02/05/25 15:50 Dose: 650 mg Documented By: DEEPTI Al Hydroxide/Mg Hydroxide (Magnesium Hydrox/Alum Hydrox 30 Ml Oral.Susp) 30 ml PO Q6H PRN PRN Reason: Heartburn/Nausea Albuterol Sulfate (Albuterol Sulfate 90 Mcg 8 Gm Inhaler) 2 puff INHALE Q4H PRN PRN Reason: Wheezing Atorvastatin Calcium (Atorvastatin Calcium 80 Mg Tablet) 80 mg PO DAILY [facility] Last Admin: 02/07/25 08:02 Dose: 80 mg Documented By: PETROS Clonazepam (Clonazepam 0.5 Mg Tablet) 0.25 mg PO BID PRN PRN Reason: Anxiety Last Admin: 02/06/25 15:56 Dose: 0.25 mg Documented By: CHARBEL Clonidine HCl (Clonidine Hcl 0.2 Mg Tablet) 0.2 mg PO TID PRN; Protocol PRN Reason: Anxiety Last Admin: 02/04/25 10:20 Dose: 0.2 mg Documented By: INGRID Divalproex Sodium (Divalproex Sodium Er 500 Mg Tab.Er.24h) 1,000 mg PO BEDTIME [facility]HI Last Admin: 02/07/25 20:41 Dose: 1,000 mg Documented By: JOHN Gabapentin (Gabapentin 600 Mg Tablet) 600 mg PO TID [facility] Last Admin: 02/07/25 20:40 Dose: 600 mg Documented By: JOHN Magnesium Hydroxide (Milk Of Magnesia 30 Ml Oral.Susp) 30 ml PO DAILY PRN PRN Reason: Constipation Methadone HCl (Methadone Hcl 20 Mg/2 Ml Oral.Conc) 25 mg PO DAILY [facility] Last Admin: 02/07/25 08:48 Dose: 25 mg Documented By: PETROS Co-signed By: KERRY Olanzapine (Olanzapine 7.5 Mg Tablet) 7.5 mg PO BEDTIME PRN PRN Reason: agitation Olanzapine (Olanzapine 2.5 Mg Tablet) 7.5 mg PO BID [facility] Last Admin: 02/07/25 20:40 Dose: 7.5 mg Documented By: JOHN Omeprazole (Omeprazole 20 Mg Capsule.Dr) 20 mg PO BID@0630,1630 [facility] Last Admin: 02/08/25 05:30 Dose: 20 mg Documented By: JOHN Propranolol HCl (Propranolol Hcl 20 Mg Tablet) 20 mg PO BID [facility]; Protocol Last Admin: 02/07/25 20:40 Dose: 20 mg Documented By: JOHN Spironolactone (Spironolactone 25 Mg Tablet) 50 mg PO DAILY [facility]; Protocol Last Admin: 02/07/25 08:02 Dose: 50 mg Documented By: PETROS Trazodone HCl (Trazodone Hcl 50 Mg Tablet) 50 mg PO BEDTIME MRX1 PRN PRN Reason: Insomnia Valsartan (Valsartan 80 Mg Tablet) 80 mg PO DAILY [facility]; Protocol Last Admin: 02/07/25 08:02 Dose: 80 mg Documented By: PETROS Labs 02/02/25 07:36 Labs: Laboratory Results - last 24 hr 02/08/25 08:00 Ammonia 27 Valproic Acid 88.3 Assessment and Plan (1) Delirium due to medical condition with behavioral disturbance: Status: Acute Plan 64-year-old with past medical history listed below presented to the ED after intentional polysubstance overdose and altered mental status. She is admitted to [facility] for further mood stabilization. Depression with anxiety/mood disorder/intentional polysubstance use overdose/bipolar Treatment per psychiatric team Recommend [facility] to assess cognition Essential hypertension Continue home valsartan 80 mg daily, propranolol 20 mg every 8 hours Continue Clonidine PRN for SBP greater than 160. Chronic pain Patient takes methadone 25 mg daily and gabapentin 600 3 times a day Pain is related to history of neuropathy and chronic low back pain. Methadone was initially discontinued due to prolonged QTC but now it is resumed COPD Continue albuterol every 4 hours as needed, Trelegy Ellipta No acute exacerbation GERD Continue pantoprazole Hyperlipidemia Continue Lipitor Lipids within normal limits Thank you for allowing me to participate in the care of this patient. Will follow with you, please notify medical provider with any changes in condition or concerns. Quality Stroke Does the patient have a stroke diagnosis?: No VTE Prior VTE?: No VTE Risk Level:: Medical - low VTE Device Contraindication: Treatment Not Indicated VTE Drug Contraindication: Treatment Not Indicated
[2025-02-08] MEDS: methADONE HCl 20 MG/2 ML ORAL.CONC 25 MG PO (08:56)
[2025-02-08 09:03] VITALS: PULSE 70
[2025-02-08 10:23] VITALS: BP 89/52; PULSE 67
--- NOTE | 2025-02-08 10:24 | PC.NURSE ---
When RN reassessed pt b/p after morning medication pass, pt b/p was 89/52, pulse 67. Pt denies feeling dizzy, lightheaded, or nauseous. Provider Rhianna Parmar notified. RN provided pt with a cup of water.
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
[2025-02-08 19:50] LABS: Appearance Urine Clear; Glucose Urine UA Negative (Negative); PH 6.5 (5.0-9.0); Specific Gravity - Urine 1.025 (1.005-1.025); UMIC TRIGGER UACC YES
[2025-02-08 19:55] LABS: UACC Culture Trigger YES
[2025-02-08 20:33] VITALS: BP 133/79; PULSE 82; RESP 16; TEMP 36.9; O2SAT 99
[2025-02-08 20:36] VITALS: BP 133/79; PULSE 71
[2025-02-09 08:00] VITALS: BP 147/93; PULSE 91; RESP 16; TEMP 36.2; O2SAT 97
[2025-02-09] MEDS: methADONE HCl 20 MG/2 ML ORAL.CONC 25 MG PO (08:44)
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
[2025-02-09 14:45] VITALS: BP 135/76; PULSE 62; RESP 14; TEMP 36.4; O2SAT 99
[2025-02-09 19:58] VITALS: BP 186/89; PULSE 79; RESP 16; O2SAT 95
[2025-02-09 19:59] VITALS: BP 186/89; PULSE 79
[2025-02-10 08:00] VITALS: BP 190/103; PULSE 108; RESP 16; TEMP 36.3; O2SAT 97
[2025-02-10 08:24] VITALS: BP 190/103; PULSE 108
[2025-02-10 08:25] VITALS: BP 190/103
[2025-02-10] MEDS: methADONE HCl 20 MG/2 ML ORAL.CONC 25 MG PO (08:25)
--- NOTE | 2025-02-10 10:01 | PC.NURSE ---
BP 190/103, P 108 at am. Pt denies headache, chest pain or shortness of pain. Pt took her am meds. Re-check at 9:50 am for BP 171/97, P 63. Provider Rhianna Araujo notified in person. Recommended to recheck BP in an hour. Will continue to monitor.
--- NOTE | 2025-02-10 11:04 | PC.NURSE ---
At 11:00 BP 173/83, P 64. Rhianna Araujo, provider notified, stated, to give PRN Clonidine. Will continue to monitor.
[2025-02-10 11:08] VITALS: BP 173/83
--- NOTE | 2025-02-10 19:17 | PC.NURSE ---
Re-check after PRN Clonidine 1.5 HR later for BP 102/63, P 58.
[2025-02-10 19:56] VITALS: BP 140/79; PULSE 64; TEMP 36.5; O2SAT 99
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
[2025-02-11] VITALS (7 sets, daily range): BP systolic 110–151; BP diastolic 64–81; PULSE 66–82; RESP 16–17; TEMP 36.6–36.8; O2SAT 97–99
[2025-02-11] MEDS: methADONE HCl 20 MG/2 ML ORAL.CONC 25 MG PO (08:18)
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
[2025-02-12 08:00] VITALS: BP 138/67; PULSE 60; RESP 16; TEMP 36.7; O2SAT 98
[2025-02-12] MEDS: methADONE HCl 20 MG/2 ML ORAL.CONC 25 MG PO (09:18)
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
[2025-02-12 20:00] VITALS: BP 125/71; PULSE 54; RESP 16; TEMP 36.6; O2SAT 97
[2025-02-12 20:02] VITALS: BP 125/71; PULSE 54
[2025-02-13 08:00] VITALS: BP 138/72; PULSE 63; RESP 18; TEMP 36.5; O2SAT 99
[2025-02-13] MEDS: methADONE HCl 20 MG/2 ML ORAL.CONC 25 MG PO (08:46)
[2025-02-13 12:09] LABS: Alanine Aminotransferase 7 U/L (0-31); Albumin Level 3.6 g/dL (3.5-5.0); Alkaline Phosphatase 53 U/L (39-117); Anion Gap 9 (12-20); Aspartate Amino Transferase 16 U/L (5-31); Blood Urea Nitrogen 16 mg/dL (9-16); Calcium 8.8 mg/dL (8.4-10.2); Carbon Dioxide 26 mmol/L (22-29); Chloride 112 mmol/L (96-108); Creatinine Clr Calc Pharmacy 51.9; Estimated Glomerular Filt Rate > 60; Potassium 4.5 mmol/L (3.3-5.1); Sodium 142 mmol/L (135-145); Total Protein 5.6 g/dL (6.5-8.0)
[2025-02-13 12:20] LABS: HIV Num 1 0.04 S/CO (0.00-0.99)
[2025-02-13 12:21] LABS: Syphilis Screen Nonreactive (Nonreactive)
[2025-02-13 20:05] VITALS: BP 184/92; PULSE 64; RESP 15; TEMP 36.9; O2SAT 98
[2025-02-13 20:08] VITALS: BP 184/92; PULSE 64
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
--- NOTE | 2025-02-14 | EEG_ITS ---
Reason for Exam: R41.82:?Altered mental status, unspecified Roomed Performed:?1st History: bipolar, anxiety, prior suicide attempts, HTN, neuropathy, HLD and COPD - Patient brought to [facility] on 02/03/25 after OD. Patient reports confusion for the last 3 weeks. Medication: valproic acid, clonazepam, clonidine, gabapentin, methadone, pantoprazole, propranolol, spironolactone, valsartan, albuterol, atorvastatin Technical description Photic stimulation: completed Hyperventilation:?omitted Behavioral state: cooperative State of Consciousness: awake Skull defect: none Sedation: none Handedness: right Duration of study:?23 min ?40 sec Description: This is a 16 channel EEG with an EKG lead. Patient is reported awake during the tracing. Background EEG rhythm is theta to delta range medium amplitude with no obvious asymmetry or paroxysmal tendency. Some lead and muscle artifacts are noted. Photic stimulation does not produce any significant driving. Hyperventilation is not performed. Cardiac lead does not reveal any significant abnormality. No sharp wave spikes or paroxysmal tendency noted. Impression: Moderate generalized slowing with no epileptic discharges. MTDD
[2025-02-14 08:00] VITALS: BP 153/97; PULSE 87; RESP 18; TEMP 36.6; O2SAT 95
[2025-02-14] MEDS: methADONE HCl 20 MG/2 ML ORAL.CONC 25 MG PO (08:56)
[2025-02-14 19:44] VITALS: BP 162/82; PULSE 65; RESP 18; TEMP 36.6; O2SAT 97
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
[2025-02-15 07:00] VITALS: BMI 21.7
[2025-02-15] MEDS: methADONE HCl 20 MG/2 ML ORAL.CONC 25 MG PO (08:02)
[2025-02-15 08:04] VITALS: BP 162/87; PULSE 73; RESP 16; TEMP 36.8; O2SAT 98
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
[2025-02-15 19:55] VITALS: BP 126/69; PULSE 74; RESP 16; TEMP 36.3; O2SAT 98
--- NOTE | 2025-02-16 01:03 | PC.NURSE ---
Pt HR 50, held Propranolol 20mg per protocol.
[2025-02-16 08:15] VITALS: BP 152/71; PULSE 68; RESP 16; TEMP 36.8; O2SAT 97
[2025-02-16] MEDS: methADONE HCl 20 MG/2 ML ORAL.CONC 25 MG PO (09:14)
--- NOTE | 2025-02-16 13:44 | MHC.CLN ---
CONSULT NUTRITION CONSULT FOR TOO MUCH WEIGHT GAIN. PATIENT WITH STABLE WEIGHT. PO VARIABLE AND APPEARS ADEQUATE TO MAINTAIN CURRENT WEIGHT. DIET RX: REGULAR. ENSURE TID PROVIDES 1050 KCALS, [address] TO MONITOR WEEKLY.
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
[2025-02-16 20:00] VITALS: BP 172/91; PULSE 64; RESP 18; TEMP 36.3; O2SAT 96
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
[2025-02-17 08:00] VITALS: BP 155/87; PULSE 74; RESP 17; TEMP 36.9; O2SAT 97
[2025-02-17] MEDS: methADONE HCl 20 MG/2 ML ORAL.CONC 25 MG PO (08:29)
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
[2025-02-17 20:00] VITALS: BP 163/83; PULSE 64; RESP 18; TEMP 36.6; O2SAT 98
[2025-02-18 08:00] VITALS: BP 122/79; PULSE 81; RESP 18; TEMP 36.6; O2SAT 98
[2025-02-18] MEDS: methADONE HCl 20 MG/2 ML ORAL.CONC 25 MG PO (08:33)
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
[2025-02-18 20:00] VITALS: BP 171/90; PULSE 61; RESP 18; TEMP 36.4; O2SAT 97
[2025-02-19 08:22] VITALS: BP 172/99; PULSE 70; RESP 16; TEMP 36.9; O2SAT 93
[2025-02-19] MEDS: methADONE HCl 20 MG/2 ML ORAL.CONC 25 MG PO (08:36)
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
[2025-02-19 20:00] VITALS: BP 186/96; PULSE 60; RESP 16; TEMP 36.4; O2SAT 99
[2025-02-20 08:15] VITALS: BP 146/82; PULSE 63; RESP 18; TEMP 36.6; O2SAT 96
[2025-02-20] MEDS: methADONE HCl 20 MG/2 ML ORAL.CONC 25 MG PO (08:54)
[2025-02-20 11:12] VITALS: BP 150/84
[2025-02-20 20:00] VITALS: BP 128/83; PULSE 65; TEMP 36.4; O2SAT 99
[2025-02-20 20:28] VITALS: BP 128/83; PULSE 66
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
[2025-02-21 08:10] VITALS: BP 151/74; PULSE 72; RESP 18; TEMP 36.6; O2SAT 98
[2025-02-21] MEDS: methADONE HCl 20 MG/2 ML ORAL.CONC 25 MG PO (08:47)
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
[2025-02-21 20:00] VITALS: BP 119/70; PULSE 70; RESP 16; TEMP 36; O2SAT 96
[2025-02-22 08:00] VITALS: BP 142/77; PULSE 64; RESP 16; TEMP 36.4; O2SAT 97
[2025-02-22] MEDS: methADONE HCl 20 MG/2 ML ORAL.CONC 25 MG PO (08:46)
[2025-02-22 12:09] VITALS: BMI 22.0
[2025-02-22 20:00] VITALS: BP 138/63; PULSE 69; RESP 16; TEMP 36.7; O2SAT 97
[2025-02-23 08:00] VITALS: BP 125/61; PULSE 56; RESP 18; TEMP 36.5
[2025-02-23] MEDS: methADONE HCl 20 MG/2 ML ORAL.CONC 25 MG PO (09:05)
[2025-02-23 09:07] VITALS: BP 125/61
[2025-02-23 09:08] VITALS: BP 125/61
[2025-02-23] MEDS: Nicotine 14 MG PATCH.TD24 TRANSDERMA (09:09)
--- NOTE | 2025-02-23 15:01 | MHC.CLN ---
F/U MOST RECENT INTAKE 100% MANY MEALS. DISCONTINUE ENSURE TID DUE TO GOOD PO AT MEALS.
[2025-02-23 20:00] VITALS: BP 130/66; PULSE 62; RESP 18; TEMP 36.3; O2SAT 100
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
[2025-02-24] MEDS: methADONE HCl 20 MG/2 ML ORAL.CONC 25 MG PO (08:33)
[2025-02-24 08:38] VITALS: BP 117/58; PULSE 55; RESP 16; TEMP 36.9; O2SAT 97
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
[2025-02-24 20:00] VITALS: BP 145/70; PULSE 61; RESP 18; TEMP 36.6; O2SAT 97
[2025-02-25] MEDS: methADONE HCl 20 MG/2 ML ORAL.CONC 25 MG PO (08:43)
[2025-02-25 08:45] VITALS: BP 122/60; PULSE 59; RESP 16; TEMP 36.3; O2SAT 97
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
[2025-02-25 20:07] VITALS: BP 123/72; PULSE 57; RESP 16; TEMP 36.2; O2SAT 97
[2025-02-25 20:09] VITALS: BP 123/72; PULSE 57
[2025-02-26 08:00] VITALS: BP 147/94; PULSE 56; RESP 16; TEMP 36.6; O2SAT 96
[2025-02-26] MEDS: methADONE HCl 20 MG/2 ML ORAL.CONC 25 MG PO (08:29)
[2025-02-26 16:05] VITALS: BP 137/83; PULSE 61; RESP 16; TEMP 36.4; O2SAT 96
[2025-02-26 20:15] VITALS: BP 118/63; PULSE 62; RESP 15; TEMP 36.6; O2SAT 96
[2025-02-26 20:17] VITALS: BP 118/63; PULSE 62
[2025-02-26] MEDS: Magnesium Hydrox/Alum Hydrox 30 ML ORAL.SUSP PO (22:28)
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
[2025-02-27 08:28] VITALS: BP 133/95; PULSE 65; RESP 17; TEMP 36.7; O2SAT 96
[2025-02-27] MEDS: methADONE HCl 20 MG/2 ML ORAL.CONC 25 MG PO (08:33)
--- NOTE | 2025-02-27 13:13 | HO.HCP ---
Health Care Proxy Invocation Health Care Proxy Declaration: I, _Lawrence Almendarez MD , on the date cited below, have determined that, __Carin Rodriguez , lacks the capacity to make or communicate, informed health care decision. This determination is made in accordance with accepted standards of medical judgment and pursuant to [place] 201[place], the [facility] Care Proxy Law. The cause, nature, extent and probable duration of the patient's inapacity are described below: Cause:multifactorial dementia . encephalopathy s/p overdose , atrophy changes on mri, chronic alcohol use Nature:The patient has severe memory impairment effecting her ability to retain new information,hold onto conversations and impacting longer term memories.She has severe problems with decision making , cannot retain and weigh information. Her severe mood disorder also impacts her ability to make decisions. Extent:The lack of decision making capacity is global effecting all areas of her life. Probable Duration of Patient's Incapacity:permanent incapacity
[2025-02-27] MEDS: Magnesium Hydrox/Alum Hydrox 30 ML ORAL.SUSP PO (18:40)
[2025-02-27 19:51] VITALS: BP 124/67; PULSE 54; RESP 15; TEMP 36.7; O2SAT 98
[2025-02-27 19:54] VITALS: BP 124/67; PULSE 54
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
[2025-02-28 08:05] VITALS: BP 173/97; PULSE 81; RESP 16; TEMP 36.9; O2SAT 96
[2025-02-28 08:24] VITALS: BP 133/82; PULSE 84; RESP 18; TEMP 37.6; O2SAT 96
[2025-02-28] MEDS: methADONE HCl 20 MG/2 ML ORAL.CONC 25 MG PO (08:46)
[2025-02-28 10:42] VITALS: TEMP 37.7
[2025-02-28 14:26] VITALS: BP 99/52; PULSE 62; TEMP 36.6
[2025-02-28 20:00] VITALS: BP 120/61; PULSE 51; RESP 17; TEMP 36.3; O2SAT 96
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
[2025-03-01 07:43] LABS: MANUAL DIFF FLAG NO
[2025-03-01 07:47] LABS: Hematocrit 30.7 % (37.0-47.0); Hemoglobin 10.0 g/dl (12.0-16.0); Imm Gran Abs Auto 0.05 X10*3/uL (0.00-0.03); Imm Gran Pct Auto 0.5 % (0.0-0.4); Lymphocytes Absolute Auto 1.5 X10*3/uL (1.2-4.9); Mean Corpuscular HGB Conc 32.6 g/dl (31.0-35.0); Mean Corpuscular Hemoglobin 30.3 pg (27.0-33.0); Mean Corpuscular Volume 93.0 fL (80.0-98.0); NRBC Abs Auto 0.000 X10*3/uL (0.0-0.012); NRBC Pct Auto 0.0 /100WBC (0.0-0.2); Platelet Count 140 X10*3/uL (160-400); Red Blood Count 3.30 X10*6/uL (4.20-5.50); White Blood Count 10.5 X10*3/uL (4.8-10.8)
[2025-03-01 07:54] VITALS: BP 101/55; PULSE 51; RESP 18; TEMP 36.2; O2SAT 99
[2025-03-01 08:04] LABS: Alanine Aminotransferase < 6 U/L (0-31); Albumin Level 2.9 g/dL (3.5-5.0); Alkaline Phosphatase 46 U/L (39-117); Anion Gap 10 (12-20); Aspartate Amino Transferase 16 U/L (5-31); Blood Urea Nitrogen 26 mg/dL (9-16); Calcium 8.4 mg/dL (8.4-10.2); Carbon Dioxide 29 mmol/L (22-29); Chloride 105 mmol/L (96-108); Creatinine Clr Calc Pharmacy 39.4; Estimated Glomerular Filt Rate 47; Potassium 4.3 mmol/L (3.3-5.1); Sodium 140 mmol/L (135-145); Total Protein 4.9 g/dL (6.5-8.0)
[2025-03-01 08:06] LABS: Ammonia 18 umol/L (13-55)
[2025-03-01] MEDS: methADONE HCl 20 MG/2 ML ORAL.CONC 25 MG PO (08:43)
[2025-03-01 14:21] VITALS: BMI 22.4
[2025-03-01 14:49] VITALS: PULSE 57
[2025-03-01 20:00] VITALS: BP 140/65; PULSE 68; RESP 16; TEMP 36.2; O2SAT 97
[2025-03-01 20:06] VITALS: BP 140/65; PULSE 68
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
[2025-03-02 08:00] VITALS: BP 125/75; PULSE 82; RESP 17; TEMP 36.5; O2SAT 99
--- NOTE | 2025-03-02 08:00 | ECG_ITS ---
Test Reason : hx of inc qtc Blood Pressure : */* mmHG Vent. Rate : 52 BPM Atrial Rate : 52 BPM P-R Int : 148 ms QRS Dur : 92 ms QT Int : 450 ms P-R-T Axes : 43 65 78 degrees QTcB Int : 418 ms Sinus bradycardia Otherwise normal ECG No previous ECGs available Referred By: Lawrence Almendarez Electronically Signed By: Abelardo Melvin
[2025-03-02 08:09] LABS: Baso%MD 0.6 %; Eos%MD 4.7 %; Hematocrit 33.0 % (37.0-47.0); Hemoglobin 10.6 g/dl (12.0-16.0); IG%MD 0.9 %; Lymph%MD 21.0 %; Mean Corpuscular HGB Conc 32.1 g/dl (31.0-35.0); Mean Corpuscular Hemoglobin 30.3 pg (27.0-33.0); Mean Corpuscular Volume 94.3 fL (80.0-98.0); Mono%MD 15.2 %; NRBC Abs Auto 0.000 X10*3/uL (0.0-0.012); NRBC Pct Auto 0.0 /100WBC (0.0-0.2); Neut%MD 57.6 %; Platelet Count 183 X10*3/uL (160-400); Red Blood Count 3.50 X10*6/uL (4.20-5.50); Reticulocytes Absolute 0.053 X10*6/uL (0.026-0.095); White Blood Count 8.1 X10*3/uL (4.8-10.8)
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
[2025-03-02 08:45] LABS: Iron 47 mcg/dL (30-160); Percent Iron Saturation 20 % (15-50); Total Iron Binding Capacity 237 mcg/dL (228-428); Unsaturated Iron Binding 190 ug/dL
[2025-03-02 09:00] LABS: Folate 8.0 ng/mL (> or = 4.0); Vitamin B12 1051 pg/mL (200-900)
[2025-03-02 09:01] LABS: Atypical Lymph Absolute Manual 0.1 x10*3/uL; Atypical Lymphs Percent Manual 1 % (0-6); Band Neutrophils Percent 3 % (3-5); Basophils Abs Manual 0.1 X10*3/uL (0.0-0.2); Basophils Percent Manual 1 % (0-2); Eosinophils Absolute Manual 0.6 X10*3/uL (0.0-0.4); Eosinophils Percent Manual 7 % (0-4); Lymphocytes Absolute Manual 1.6 X10*3/uL (1.2-4.9); Lymphocytes Percent Manual 20 % (20-40); Monocytes Absolute Manual 1.2 X10*3/uL (0.1-1.2); Monocytes Percent Manual 15 % (2-11); Neutrophils Absolute Manual 4.5 X10*3/uL (2.0-8.3); Neutrophils Percent Manual 53 % (45-73)
[2025-03-02 09:02] LABS: RBC Morphology NOTED
[2025-03-02 09:03] LABS: Acanthocytes 1+ (0-2) /OIF; Burr Cells 1+ (0-2) /OIF; Schistocytes 1+ (0-2) /OIF
[2025-03-02] MEDS: methADONE HCl 20 MG/2 ML ORAL.CONC 25 MG PO (09:03)
[2025-03-02 13:49] LABS: OBS Int Ctl Valid YES; OBS1 NEGATIVE (NEGATIVE)
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
[2025-03-02 14:36] VITALS: BP 128/77
[2025-03-02 20:00] VITALS: BP 123/70; PULSE 58; RESP 16; TEMP 36.3; O2SAT 97
[2025-03-02 20:39] VITALS: BP 123/70; PULSE 58
--- NOTE | 2025-03-03 | ECG_ITS ---
Test Reason : Unwitnessed fall Blood Pressure : */* mmHG Vent. Rate : 54 BPM Atrial Rate : 54 BPM P-R Int : 166 ms QRS Dur : 92 ms QT Int : 466 ms P-R-T Axes : 62 76 81 degrees QTcB Int : 441 ms Sinus bradycardia Otherwise normal ECG When compared with ECG of 01-Mar-2025 22:29, No significant change was found Referred By: Ammy Sotomayor Electronically Signed By: Abelardo Melvin
[2025-03-03 08:00] VITALS: BP 139/83; PULSE 62; RESP 18; TEMP 36.6; O2SAT 98
[2025-03-03] MEDS: methADONE HCl 20 MG/2 ML ORAL.CONC 25 MG PO (08:47)
[2025-03-03 14:13] LABS: Glucose, Whole Blood 114 mg/dL (60-115)
[2025-03-03 14:16] VITALS: BP 141/86; PULSE 60
[2025-03-03 14:20] VITALS: BP 119/70; PULSE 51
--- NOTE | 2025-03-03 14:27 | P.EN_ITS ---
Event Note Date of Service: 03/03/25 Event Note: Rapid response called as pt had an unwitnessed fall in the bathroom. Pt is alert and oriented, but unable to provide much hx concerning the incident. Pt is unclear if she slipped on the floor or felt lightheaded or dizzy. pt also uncertain whether or not she went to the bathroom. Does complain of had pain which she states she hit on the floor. Denies any other significant pain, including no hip pain. Patient's vitals show hypertension of 172/88, HR 55, sa tting at 99% on RA, POC 114. EKG showing sinus bradycardia of 54 without ischemic changes. Will check CT of head and C-spine. Will also check BMP, CBC, CPK, lactic acid, valproic acid levels, and UA. Of note, pt has recently had multiple medication changes, including discontinuation of Latuda due to weakness, tremors, low-grade fever, and generally feeling ?off?. Propranolol was also recently increased to 20 mg t.i.d.. Pt was also undergoing workup for anemia, though last blood levels and increased from prior. Time Spent With Patient Time: Total time managing care of this patient today ____ minutes.
[2025-03-03 14:29] VITALS: BP 177/82; PULSE 53
[2025-03-03 15:46] LABS: Hematocrit 35.9 % (37.0-47.0); Hemoglobin 11.3 g/dl (12.0-16.0); Mean Corpuscular HGB Conc 31.5 g/dl (31.0-35.0); Mean Corpuscular Hemoglobin 29.8 pg (27.0-33.0); Mean Corpuscular Volume 94.7 fL (80.0-98.0); NRBC Abs Auto 0.000 X10*3/uL (0.0-0.012); NRBC Pct Auto 0.0 /100WBC (0.0-0.2); Platelet Count 224 X10*3/uL (160-400); Red Blood Count 3.79 X10*6/uL (4.20-5.50); White Blood Count 7.4 X10*3/uL (4.8-10.8)
[2025-03-03 15:53] LABS: Anion Gap 12 (12-20); Blood Urea Nitrogen 16 mg/dL (9-16); Calcium 9.0 mg/dL (8.4-10.2); Carbon Dioxide 27 mmol/L (22-29); Chloride 107 mmol/L (96-108); Creatinine Clr Calc Pharmacy 48.6; Estimated Glomerular Filt Rate 60; Potassium 4.2 mmol/L (3.3-5.1); Sodium 142 mmol/L (135-145)
[2025-03-03 16:13] VITALS: BP 140/80; PULSE 54
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
[2025-03-03 17:14] LABS: Appearance Urine Clear; Glucose Urine UA Negative (Negative); PH 7.0 (5.0-9.0); Specific Gravity - Urine 1.025 (1.005-1.025); UMIC TRIGGER UACC YES
[2025-03-03 17:30] LABS: UACC Culture Trigger YES
[2025-03-03 20:00] VITALS: BP 127/74; PULSE 54; RESP 14; TEMP 36.7; O2SAT 97
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
[2025-03-04 07:53] VITALS: BP 122/66; PULSE 74; RESP 18; TEMP 36.1; O2SAT 97
[2025-03-04] MEDS: methADONE HCl 20 MG/2 ML ORAL.CONC 25 MG PO (08:58)
[2025-03-04 14:26] VITALS: BP 129/75; PULSE 72
[2025-03-04 20:09] VITALS: BP 123/72; PULSE 53; RESP 16; TEMP 36; O2SAT 96
[2025-03-04 20:19] VITALS: BP 123/72; PULSE 53
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
[2025-03-05 08:00] VITALS: BP 130/77; PULSE 50; RESP 16; TEMP 36.3; O2SAT 96
[2025-03-05] MEDS: methADONE HCl 20 MG/2 ML ORAL.CONC 25 MG PO (08:48)
[2025-03-05 20:00] VITALS: BP 132/60; PULSE 61; RESP 18; TEMP 36.6; O2SAT 95
[2025-03-05 20:25] VITALS: BP 132/60; PULSE 61
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
[2025-03-06 08:00] VITALS: BP 139/83; PULSE 62; RESP 16; TEMP 36.2; O2SAT 99
[2025-03-06] MEDS: methADONE HCl 20 MG/2 ML ORAL.CONC 25 MG PO (09:09)
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
[2025-03-06 14:41] VITALS: BP 140/65; PULSE 60
[2025-03-06 20:00] VITALS: BP 141/66; PULSE 86; RESP 16; TEMP 36.2; O2SAT 97
[2025-03-06 20:15] VITALS: BP 141/66; PULSE 86
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
[2025-03-07 08:00] VITALS: BP 121/62; PULSE 65; RESP 18; TEMP 36.5; O2SAT 98
[2025-03-07 08:08] LABS: MANUAL DIFF FLAG NO
[2025-03-07 08:26] VITALS: BP 121/62
[2025-03-07 08:27] VITALS: BP 121/62; PULSE 65
[2025-03-07] MEDS: methADONE HCl 20 MG/2 ML ORAL.CONC 25 MG PO (08:28)
[2025-03-07 08:32] LABS: Hematocrit 34.6 % (37.0-47.0); Hemoglobin 11.0 g/dl (12.0-16.0); Imm Gran Abs Auto 0.17 X10*3/uL (0.00-0.03); Imm Gran Pct Auto 3.2 % (0.0-0.4); Lymphocytes Absolute Auto 1.7 X10*3/uL (1.2-4.9); Mean Corpuscular HGB Conc 31.8 g/dl (31.0-35.0); Mean Corpuscular Hemoglobin 29.7 pg (27.0-33.0); Mean Corpuscular Volume 93.5 fL (80.0-98.0); NRBC Abs Auto 0.000 X10*3/uL (0.0-0.012); NRBC Pct Auto 0.0 /100WBC (0.0-0.2); Platelet Count 224 X10*3/uL (160-400); Red Blood Count 3.70 X10*6/uL (4.20-5.50); White Blood Count 5.4 X10*3/uL (4.8-10.8)
[2025-03-07 14:10] VITALS: BP 138/67; PULSE 62
[2025-03-07 20:31] VITALS: BP 146/65; PULSE 54; RESP 16; TEMP 36.8; O2SAT 98
[2025-03-07 20:33] VITALS: BP 146/65; PULSE 54
--- NOTE | 2025-03-07 22:16 | HO.PSYCHPN ---
Subjective Subjective Date of Service: 03/07/25 Reason For Visit: F05.8, F31.81 Subjective Notes: Conditional Voluntary Healthcare Proxy: Yes Interim History: Patient seen psychiatric follow-up has been having a difficult time understanding need for half-way facility feeling she losing freedom had been more withdrawn does not remember making suicide attempt Medication Compliance: Yes Attending Groups: Intermittent Mental Status Exam Mental Status Exam Narrative: Patient casually dressed seen in her room. Patient mood depressed affect blunted and labile patient focused on she is ?? a free spirit can not see how she can be locked away in a facility. Has difficulty understanding her limitations can not really explain the position she was living prior to admission or details regarding her suicide attempt denies active SI limited insight Diagnostics Vital Signs (24Hr): Vital Signs - 24 hr 03/07/25 08:00 03/07/25 08:26 03/07/25 08:27 Temperature 97.7 F Pulse Rate 65 Respiratory Rate 18 Blood Pressure 121/62 121/62 121/62 Pulse Oximetry 98 Oxygen Delivery Method Room Air 03/07/25 08:27 03/07/25 14:10 03/07/25 20:31 Temperature 98.2 F Pulse Rate 65 62 54 Respiratory Rate 16 Blood Pressure 121/62 138/67 146/65 H Pulse Oximetry 98 Oxygen Delivery Method Room Air 03/07/25 20:33 Temperature Pulse Rate 54 Respiratory Rate Blood Pressure 146/65 H Pulse Oximetry Oxygen Delivery Method BMI result Body Mass Index 22.4 Labs 03/07/25 07:33 03/03/25 15:25 Labs: Laboratory Results - last 48 hr 03/07/25 07:33 WBC 5.4 RBC 3.70 L Hgb 11.0 L Hct 34.6 L MCV 93.5 MCH 29.7 MCHC 31.8 RDW 16.3 H Plt Count 224 MPV 9.9 Immature Gran % (Auto) 3.2 H Neut % (Auto) 44.7 L Lymph % (Auto) 30.8 [place] % (Auto) 13.1 H Eos % (Auto) 6.7 H Baso % (Auto) 1.5 Lymph # (Auto) 1.7 [place] # (Auto) 0.7 Eos # (Auto) 0.4 Baso # (Auto) 0.1 Abs Immat Gran (auto) 0.17 H Absolute Neuts (auto) 2.4 Absolute Nucleated RBC 0.000 Nucleated RBC % (auto) 0.0 Imaging Radiology Impressions: ITS Impressions Brain MRI 02/09/25 15:21 IMPRESSION: 1. No evidence of intracranial hemorrhage, acute infarction, mass effect, or edema. 2. Mildly age advanced cerebral and cerebellar volume loss. 3. Mild changes of small vessel ischemia. Electronically signed by: Freeman López MD 02/09/2025 04:20 PM EDT RP SPECT Scan-Brain NM 02/15/25 14:22 IMPRESSION: Decreased bifrontal perfusion greater on the left side. Decrease perfusion in left thalamus, left jeremy and midbrain. This could be secondary to patient being dominant right handed. CT reveals no acute intracranial process. There is however mild bilateral frontal volume loss. Electronically signed by: Jose Luis Gardiner MD 02/16/2025 11:15 AM EDT RP Lumbar Spine X-Ray 03/06/25 12:07 IMPRESSION: Moderate S-shaped scoliosis with multilevel degenerative disc disease and facet osteoarthritis. Additionally, there is grade 1 anterolisthesis at L4-5. Electronically signed by: Mitesh Bueno MD 03/06/2025 12:19 PM [facility] RP Medications Medications Current Medications Acetaminophen (Acetaminophen 325 Mg Tablet) 650 mg PO Q6H PRN PRN Reason: Headache/Pain, Scale 1-10 Last Admin: 03/06/25 13:26 Dose: 650 mg Al Hydroxide/Mg Hydroxide (Magnesium Hydrox/Alum Hydrox 30 Ml Oral.Susp) 30 ml PO Q6H PRN PRN Reason: Heartburn/Nausea Last Admin: 02/27/25 18:40 Dose: 30 ml Albuterol Sulfate (Albuterol Sulfate 90 Mcg 8 Gm Inhaler) 2 puff INHALE Q4H PRN PRN Reason: Wheezing Atorvastatin Calcium (Atorvastatin Calcium 80 Mg Tablet) 80 mg PO DAILY [facility] Last Admin: 03/07/25 08:26 Dose: 80 mg Clonazepam (Clonazepam 0.5 Mg Tablet) 0.5 mg PO BID PRN PRN Reason: Anxiety Last Admin: 03/07/25 08:58 Dose: 0.5 mg Clonidine HCl (Clonidine Hcl 0.1 Mg Tablet) 0.1 mg PO TID PRN; Protocol PRN Reason: Anxiety Last Admin: 02/11/25 16:25 Dose: 0.1 mg Divalproex Sodium (Divalproex Sodium Er 500 Mg Tab.Er.24h) 1,000 mg PO BEDTIME [facility] Last Admin: 03/07/25 20:35 Dose: 1,000 mg Docusate Sodium (Docusate Sodium 100 Mg Capsule) 100 mg PO BID [facility] Last Admin: 03/07/25 20:34 Dose: 100 mg Donepezil HCl (Donepezil Hcl 5 Mg Tablet) 5 mg PO DAILY [facility] Last Admin: 03/07/25 08:26 Dose: 5 mg Gabapentin (Gabapentin 400 Mg Capsule) 400 mg PO TID [facility] Last Admin: 03/07/25 20:34 Dose: 400 mg Magnesium Hydroxide (Milk Of Magnesia 30 Ml Oral.Susp) 30 ml PO DAILY PRN PRN Reason: Constipation Memantine (Memantine Hcl 5 Mg Tablet) 5 mg PO DAILY [facility] Last Admin: 03/07/25 08:26 Dose: 5 mg Methadone HCl (Methadone Hcl 20 Mg/2 Ml Oral.Conc) 25 mg PO DAILY [facility] Last Admin: 03/07/25 08:28 Dose: 25 mg Nicotine Polacrilex (Nicotine Polacrilex 2 Mg Gum) 2 mg BUCCAL Q2H PRN PRN Reason: Nicotine Cravings Last Admin: 02/11/25 14:21 Dose: 2 mg Olanzapine (Olanzapine 5 Mg Tablet) 5 mg PO BEDTIME PRN PRN Reason: agitation Last Admin: 03/03/25 18:02 Dose: 5 mg Olanzapine (Olanzapine 5 Mg Tablet) 5 mg PO BEDTIME [facility] Last Admin: 03/07/25 20:34 Dose: 5 mg Omeprazole (Omeprazole 20 Mg Capsule.Dr) 20 mg PO BID@0630,1630 [facility] Last Admin: 03/07/25 16:18 Dose: 20 mg Propranolol HCl (Propranolol Hcl 20 Mg Tablet) 20 mg PO TID [facility]; Protocol Last Admin: 03/07/25 20:33 Dose: 20 mg Senna (Sennosides 8.6 Mg Tablet) 17.2 mg PO BEDTIME [facility] Last Admin: 03/07/25 20:35 Dose: 17.2 mg Spironolactone (Spironolactone 25 Mg Tablet) 50 mg PO DAILY [facility]; Protocol Last Admin: 03/07/25 08:26 Dose: 50 mg Thiamine HCl (Thiamine Hcl 100 Mg Tablet) 100 mg PO DAILY [facility] Last Admin: 03/07/25 08:26 Dose: 100 mg Trazodone HCl (Trazodone Hcl 50 Mg Tablet) 50 mg PO BEDTIME MRX1 PRN PRN Reason: Insomnia Last Admin: 03/05/25 20:25 Dose: 50 mg Valsartan (Valsartan 40 Mg Tablet) 120 mg PO DAILY [facility]; Protocol Last Admin: 03/07/25 08:27 Dose: 120 mg Vitamin D (Cholecalciferol (Vitamin D3) 25 Mcg Tablet) 25 mcg PO DAILY [facility] Last Admin: 03/07/25 08:26 Dose: 25 mcg Allergies Allergies Allergy/AdvReac Type Severity Reaction Status Date / Time ceftriaxone (From Rocephin) AdvReac Severe Unknown Verified 02/01/25 20:31 lithium AdvReac Severe Unknown Verified 02/01/25 20:30 tiotropium AdvReac Severe Unknown Verified 02/01/25 20:31 trazodone AdvReac Severe Unknown Verified 02/01/25 20:30 quetiapine AdvReac Intermediate Unknown Verified 02/01/25 20:29 nefazodone AdvReac Unknown Verified 02/01/25 20:29 Assessment & Plan Assessment & Plan (1) Bipolar disorder, most recent episode depressed: Status: Acute Code(s): F31.30 - Bipolar disorder, current episode depressed, mild or moderate severity, unspecified (2) Suicide attempt by drug overdose: Status: Acute Code(s): T50.902A - Poisoning by unspecified drugs, medicaments and biological substances, intentional self-harm, initial encounter (3) Multifactorial dementia: Status: Acute Code(s): F03.90 - Unspecified dementia, unspecified severity, without behavioral disturbance, psychotic disturbance, mood disturbance, and anxiety (4) HTN (hypertension): Status: Acute Code(s): I10 - Essential (primary) hypertension (5) Anemia: Status: Acute Code(s): D64.9 - Anemia, unspecified Plan Some ability no classical reese. Attempting to help patient process recent overdose and cognitive dysfunction. Discussed different discharge potential options and what was realistic. Patient did not respond to Latuda or Vraylar continues on Depakote ammonia level okay Patient educated on: diagnosis, therapeutic strategies and medical condition Informed Consent: further education needed Reason for continued inpatient stay Substantial Risk for: harm to self, rapid decompensation and med/psych decompensation Time Spent With Patient Time: Total time managing care of this patient today _30___ minutes.
[2025-03-08 08:10] VITALS: BP 144/85; PULSE 71; RESP 16; TEMP 36.7; O2SAT 97
[2025-03-08] MEDS: methADONE HCl 20 MG/2 ML ORAL.CONC 25 MG PO (08:59)
[2025-03-08 11:05] VITALS: BMI 22.1
[2025-03-08 14:14] VITALS: BP 136/75; PULSE 55
--- NOTE | 2025-03-08 15:10 | PC.NURSE ---
Pt pulse was 55. RN held scheduled Propanolol per protocol. Provider Lawrence Almendarez notified.
[2025-03-08 20:56] VITALS: BP 139/69; PULSE 54; RESP 15; TEMP 36.8; O2SAT 98
[2025-03-08 21:05] VITALS: BP 139/69; PULSE 54
--- NOTE | 2025-03-08 23:33 | PM.EVENT ---
Event Note Date of Service: 03/08/25 Event Note: Review of patient's pain management history. Patient has a history of neuropathy anterolisthesis scoliosis spinal stenosis with multiple level disc degeneration. Patient has been treated at pain management with long history of injections. She was continued on gabapentin t.i.d. and methadone 27 mg for chronic back pain as part of pain management. Patient has gait abnormality bradykinesia Time Spent With Patient Time: Total time managing care of this patient today ____ minutes.
[2025-03-09 08:00] VITALS: BP 144/79; PULSE 58; RESP 16; TEMP 36.6; O2SAT 98
[2025-03-09 08:40] VITALS: BP 144/79; PULSE 58; O2SAT 98
[2025-03-09] MEDS: methADONE HCl 20 MG/2 ML ORAL.CONC 25 MG PO (08:49)
[2025-03-09 16:01] VITALS: BP 138/82
--- NOTE | 2025-03-09 19:33 | HO.PSYCHPN ---
Subjective Subjective Date of Service: 03/09/25 Reason For Visit: F05.8, F31.81 Subjective Notes: Conditional Voluntary Interim History: Pt case reviewed chart reviewed pt anxious overwhelmed catastrophic thinking referral made to snf/rehab see pt consult Mental Status Exam Mental Status Exam Narrative: Patient casually dressed seen in her room. Patient mood depressed affect blunted and labile patient focused on she is ?? a free spirit can not see how she can be locked away in a facility. Has difficulty understanding her limitations can not really explain the position she was living prior to admission or details regarding her suicide attempt denies active SI limited insight Diagnostics Vital Signs (24Hr): Vital Signs - 24 hr 03/08/25 20:56 03/08/25 21:05 03/09/25 08:00 Temperature 98.3 F 97.8 F Pulse Rate 54 54 58 Respiratory Rate 15 16 Blood Pressure 139/69 139/69 144/79 H Pulse Oximetry 98 98 Oxygen Delivery Method Room Air Room Air 03/09/25 08:40 03/09/25 16:01 Temperature Pulse Rate 58 Respiratory Rate Blood Pressure 144/79 H 138/82 Pulse Oximetry 98 Oxygen Delivery Method BMI result Body Mass Index 22.1 Labs 03/07/25 07:33 03/03/25 15:25 Imaging Radiology Impressions: ITS Impressions Brain MRI 02/09/25 15:21 IMPRESSION: 1. No evidence of intracranial hemorrhage, acute infarction, mass effect, or edema. 2. Mildly age advanced cerebral and cerebellar volume loss. 3. Mild changes of small vessel ischemia. Electronically signed by: Freeman López MD 02/09/2025 04:20 PM EDT SPECT Scan-Brain NM 02/15/25 14:22 IMPRESSION: Decreased bifrontal perfusion greater on the left side. Decrease perfusion in left thalamus, left jeremy and midbrain. This could be secondary to patient being dominant right handed. CT reveals no acute intracranial process. There is however mild bilateral frontal volume loss. Electronically signed by: Jose Luis Gardiner MD 02/16/2025 11:15 AM EDT Lumbar Spine X-Ray 03/06/25 12:07 IMPRESSION: Moderate S-shaped scoliosis with multilevel degenerative disc disease and facet osteoarthritis. Additionally, there is grade 1 anterolisthesis at L4-5. Electronically signed by: Mitesh Bueno MD 03/06/2025 12:19 PM [facility] Medications Medications Current Medications Acetaminophen (Acetaminophen 325 Mg Tablet) 650 mg PO Q6H PRN PRN Reason: Headache/Pain, Scale 1-10 Last Admin: 03/09/25 08:52 Dose: 650 mg Al Hydroxide/Mg Hydroxide (Magnesium Hydrox/Alum Hydrox 30 Ml Oral.Susp) 30 ml PO Q6H PRN PRN Reason: Heartburn/Nausea Last Admin: 02/27/25 18:40 Dose: 30 ml Albuterol Sulfate (Albuterol Sulfate 90 Mcg 8 Gm Inhaler) 2 puff INHALE Q4H PRN PRN Reason: Wheezing Atorvastatin Calcium (Atorvastatin Calcium 80 Mg Tablet) 80 mg PO DAILY [facility] Last Admin: 03/09/25 08:52 Dose: 80 mg Clonazepam (Clonazepam 0.5 Mg Tablet) 0.5 mg PO BID PRN PRN Reason: Anxiety Last Admin: 03/09/25 14:30 Dose: 0.5 mg Clonidine HCl (Clonidine Hcl 0.1 Mg Tablet) 0.1 mg PO TID PRN; Protocol PRN Reason: Anxiety Last Admin: 03/09/25 16:01 Dose: 0.1 mg Divalproex Sodium (Divalproex Sodium Er 500 Mg Tab.Er.24h) 1,000 mg PO BEDTIME [facility] Last Admin: 03/08/25 21:05 Dose: 1,000 mg Docusate Sodium (Docusate Sodium 100 Mg Capsule) 100 mg PO BID [facility] Last Admin: 03/09/25 08:51 Dose: 100 mg Donepezil HCl (Donepezil Hcl 10 Mg Tablet) 10 mg PO DAILY [facility] Last Admin: 03/09/25 08:51 Dose: 10 mg Gabapentin (Gabapentin 400 Mg Capsule) 400 mg PO TID [facility] Last Admin: 03/09/25 14:13 Dose: 400 mg Magnesium Hydroxide (Milk Of Magnesia 30 Ml Oral.Susp) 30 ml PO DAILY PRN PRN Reason: Constipation Memantine (Memantine Hcl 5 Mg Tablet) 5 mg PO DAILY [facility] Last Admin: 03/09/25 08:52 Dose: 5 mg Methadone HCl (Methadone Hcl 20 Mg/2 Ml Oral.Conc) 25 mg PO DAILY [facility] Last Admin: 03/09/25 08:49 Dose: 25 mg Nicotine Polacrilex (Nicotine Polacrilex 2 Mg Gum) 2 mg BUCCAL Q2H PRN PRN Reason: Nicotine Cravings Last Admin: 02/11/25 14:21 Dose: 2 mg Olanzapine (Olanzapine 5 Mg Tablet) 5 mg PO BEDTIME PRN PRN Reason: agitation Last Admin: 03/03/25 18:02 Dose: 5 mg Olanzapine (Olanzapine 5 Mg Tablet) 5 mg PO BEDTIME [facility] Last Admin: 03/08/25 21:05 Dose: 5 mg Omeprazole (Omeprazole 20 Mg Capsule.Dr) 20 mg PO BID@0630,1630 [facility] Last Admin: 03/09/25 16:20 Dose: 20 mg Propranolol HCl (Propranolol Hcl 20 Mg Tablet) 20 mg PO TID [facility]; Protocol Last Admin: 03/09/25 14:13 Dose: 20 mg Senna (Sennosides 8.6 Mg Tablet) 17.2 mg PO BEDTIME [facility] Last Admin: 03/08/25 21:06 Dose: 17.2 mg Spironolactone (Spironolactone 25 Mg Tablet) 50 mg PO DAILY [facility]; Protocol Last Admin: 03/09/25 08:51 Dose: 50 mg Thiamine HCl (Thiamine Hcl 100 Mg Tablet) 100 mg PO DAILY [facility] Last Admin: 03/09/25 08:52 Dose: 100 mg Trazodone HCl (Trazodone Hcl 50 Mg Tablet) 50 mg PO BEDTIME MRX1 PRN PRN Reason: Insomnia Last Admin: 03/05/25 20:25 Dose: 50 mg Valsartan (Valsartan 40 Mg Tablet) 120 mg PO DAILY [facility]; Protocol Last Admin: 03/09/25 08:51 Dose: 120 mg Vitamin D (Cholecalciferol (Vitamin D3) 25 Mcg Tablet) 25 mcg PO DAILY [facility] Last Admin: 03/09/25 08:51 Dose: 25 mcg Allergies Allergies Allergy/AdvReac Type Severity Reaction Status Date / Time ceftriaxone (From [facility]) AdvReac Severe Unknown Verified 02/01/25 20:31 lithium AdvReac Severe Unknown Verified 02/01/25 20:30 tiotropium AdvReac Severe Unknown Verified 02/01/25 20:31 trazodone AdvReac Severe Unknown Verified 02/01/25 20:30 quetiapine AdvReac Intermediate Unknown Verified 02/01/25 20:29 nefazodone AdvReac Unknown Verified 02/01/25 20:29 Assessment & Plan Assessment & Plan (1) Bipolar disorder, most recent episode depressed: Status: Acute Code(s): F31.30 - Bipolar disorder, current episode depressed, mild or moderate severity, unspecified (2) Suicide attempt by drug overdose: Status: Acute Code(s): T50.902A - Poisoning by unspecified drugs, medicaments and biological substances, intentional self-harm, initial encounter (3) Multifactorial dementia: Status: Acute Code(s): F03.90 - Unspecified dementia, unspecified severity, without behavioral disturbance, psychotic disturbance, mood disturbance, and anxiety (4) HTN (hypertension): Status: Acute Code(s): I10 - Essential (primary) hypertension (5) Anemia: Status: Acute Code(s): D64.9 - Anemia, unspecified Plan Some ability no classical reese. Attempting to help patient process recent overdose and cognitive dysfunction. Discussed different discharge potential options and what was realistic. Patient did not respond to Latuda or Vraylar continues on Depakote ammonia level [place] Informed Consent: further education needed Reason for continued inpatient stay Substantial Risk for: rapid decompensation and med/psych decompensation Time Spent With Patient Time: Total time managing care of this patient today _30___ minutes.
[2025-03-09 20:18] VITALS: BP 103/56; PULSE 94; RESP 16; TEMP 36.6; O2SAT 96
[2025-03-09 20:22] VITALS: BP 103/56; PULSE 54
[2025-03-10 08:00] VITALS: BP 130/70; PULSE 52; RESP 16; TEMP 36.6; O2SAT 97
[2025-03-10] MEDS: methADONE HCl 20 MG/2 ML ORAL.CONC 25 MG PO (09:02)
[2025-03-10 09:03] VITALS: BP 130/70
[2025-03-10 09:05] VITALS: BP 130/70
[2025-03-10 15:49] VITALS: BP 154/86; PULSE 66
[2025-03-10 20:00] VITALS: BP 115/58; PULSE 50; RESP 18; TEMP 36.4; O2SAT 95
--- NOTE | 2025-03-10 22:31 | HO.PSYCHPN ---
Subjective Subjective Date of Service: 03/10/25 Reason For Visit: F05.8, F31.81 Subjective Notes: Conditional Voluntary Healthcare Proxy: Yes Guardianship: No Medical Problems Affecting Mental Status: No Interim History: Patient seen in her room. She was calm, communicative. She say that she is feeling not good at all. She states that she is upset because of the plan for her to go to a retirement facility. She states that Dr. Benson supports her and doesn't want her a place like that. She states that she understands that her family wants her to be safe but that she feels a retirement facility is excessive. She also is worried about her finances being severely restricted as a result. She denies suicidal ideation, though she speculates that she may become hopeless at a jail. She was only oriented to the year. Later, staff alerted film writer that patient was crying inconsolably. Heart rate 50. Terminal Makeup Operator put an order in for hydroxyzine, while noting that this is a Beers criteria medication and should be monitored closely. Medication Compliance: Yes Side effects from medications: No Attending Groups: Intermittent Review of Systems Acute medical concerns: No Medical Review of Systems: changed Review of Systems Review of Systems Yes all other systems are reviewed and are negative Mental Status Exam Mental Status Exam Narrative: Patient Appearance: Well Groomed, adequate hygiene Patient Behavior: Appropriate Level of Consciousness: Awake, alert Patient Orientation: person, place, year only Memory: grossly intact to recent events Psychomotor: no agitation or slowing Speech: normal rate, tone, volume Mood: ?not good at all? Affect: constricted Thought Process: Goal Oriented Thought Content: denies SI/HI; focused on dispo fears Hallucinations: Denies; does not appear preoccupied Delusions: None evinced Insight: significant impairment Judgment: significant impairment Impulsivity: low Diagnostics Vital Signs (24Hr): Vital Signs - 24 hr 03/10/25 08:00 03/10/25 09:03 03/10/25 09:05 Temperature 97.8 F Pulse Rate 52 Respiratory Rate 16 Blood Pressure 130/70 130/70 130/70 Pulse Oximetry 97 Oxygen Delivery Method Room Air 03/10/25 09:05 03/10/25 15:49 03/10/25 20:00 Temperature 97.5 F Pulse Rate 66 50 Respiratory Rate 18 Blood Pressure 130/70 154/86 H 115/58 L Pulse Oximetry 95 Oxygen Delivery Method Room Air BMI result Body Mass Index 22.1 Labs 03/07/25 07:33 03/03/25 15:25 Imaging Radiology Impressions: ITS Impressions Brain MRI 02/09/25 15:21 IMPRESSION: 1. No evidence of intracranial hemorrhage, acute infarction, mass effect, or edema. 2. Mildly age advanced cerebral and cerebellar volume loss. 3. Mild changes of small vessel ischemia. Electronically signed by: Freeman López MD 02/09/2025 04:20 PM EDT RP SPECT Scan-Brain NM 02/15/25 14:22 IMPRESSION: Decreased bifrontal perfusion greater on the left side. Decrease perfusion in left thalamus, left jeremy and midbrain. This could be secondary to patient being dominant right handed. CT reveals no acute intracranial process. There is however mild bilateral frontal volume loss. Electronically signed by: Jose Luis Gardiner MD 02/16/2025 11:15 AM EDT RP Lumbar Spine X-Ray 03/06/25 12:07 IMPRESSION: Moderate S-shaped scoliosis with multilevel degenerative disc disease and facet osteoarthritis. Additionally, there is grade 1 anterolisthesis at L4-5. Electronically signed by: Mitesh Bueno MD 03/06/2025 12:19 PM EST RP Medications Medications Current Medications Acetaminophen (Acetaminophen 325 Mg Tablet) 650 mg PO Q6H PRN PRN Reason: Headache/Pain, Scale 1-10 Last Admin: 03/10/25 13:23 Dose: 650 mg Al Hydroxide/Mg Hydroxide (Magnesium Hydrox/Alum Hydrox 30 Ml Oral.Susp) 30 ml PO Q6H PRN PRN Reason: Heartburn/Nausea Last Admin: 02/27/25 18:40 Dose: 30 ml Albuterol Sulfate (Albuterol Sulfate 90 Mcg 8 Gm Inhaler) 2 puff INHALE Q4H PRN PRN Reason: Wheezing Atorvastatin Calcium (Atorvastatin Calcium 80 Mg Tablet) 80 mg PO DAILY MAHI Last Admin: 03/10/25 09:04 Dose: 80 mg Clonazepam (Clonazepam 0.5 Mg Tablet) 0.5 mg PO BID PRN PRN Reason: Anxiety Last Admin: 03/10/25 12:19 Dose: 0.5 mg Clonidine HCl (Clonidine Hcl 0.1 Mg Tablet) 0.1 mg PO TID PRN; Protocol PRN Reason: Anxiety Last Admin: 03/09/25 16:01 Dose: 0.1 mg Divalproex Sodium (Divalproex Sodium Er 500 Mg Tab.Er.24h) 1,000 mg PO BEDTIME MAHI Last Admin: 03/10/25 20:28 Dose: 1,000 mg Docusate Sodium (Docusate Sodium 100 Mg Capsule) 100 mg PO BID [facility] Last Admin: 03/10/25 20:28 Dose: 100 mg Donepezil HCl (Donepezil Hcl 10 Mg Tablet) 10 mg PO DAILY [facility] [place] Last Admin: 03/10/25 09:06 Dose: 10 mg Gabapentin (Gabapentin 400 Mg Capsule) 400 mg PO TID [facility] [place] Last Admin: 03/10/25 20:28 Dose: 400 mg Hydroxyzine HCl (Hydroxyzine Hcl 25 Mg Tablet) 25 mg PO Q8H PRN PRN Reason: Anxiety Magnesium Hydroxide (Milk Of Magnesia 30 Ml Oral.Susp) 30 ml PO DAILY PRN PRN Reason: Constipation Memantine (Memantine Hcl 5 Mg Tablet) 5 mg PO DAILY [facility] [place] Last Admin: 03/10/25 09:06 Dose: 5 mg Methadone HCl (Methadone Hcl 20 Mg/2 Ml Oral.Conc) 25 mg PO DAILY [facility] [place] Last Admin: 03/10/25 09:02 Dose: 25 mg Nicotine Polacrilex (Nicotine Polacrilex 2 Mg Gum) 2 mg BUCCAL Q2H PRN PRN Reason: Nicotine Cravings Last Admin: 02/11/25 14:21 Dose: 2 mg Olanzapine (Olanzapine 5 Mg Tablet) 5 mg PO BEDTIME PRN PRN Reason: agitation Last Admin: 03/03/25 18:02 Dose: 5 mg Olanzapine (Olanzapine 5 Mg Tablet) 5 mg PO BEDTIME [facility] [place] Last Admin: 03/10/25 20:28 Dose: 5 mg Omeprazole (Omeprazole 20 Mg Capsule.Dr) 20 mg PO BID@0630,1630 [facility] [place] Last Admin: 03/10/25 16:43 Dose: 20 mg Propranolol HCl (Propranolol Hcl 20 Mg Tablet) 20 mg PO TID [facility]; Protocol Last Admin: 03/10/25 20:28 Dose: Not Given Senna (Sennosides 8.6 Mg Tablet) 17.2 mg PO BEDTIME [facility] [place] Last Admin: 03/10/25 20:28 Dose: 17.2 mg Spironolactone (Spironolactone 25 Mg Tablet) 50 mg PO DAILY [facility] [place]; Protocol Last Admin: 03/10/25 09:03 Dose: 50 mg Thiamine HCl (Thiamine Hcl 100 Mg Tablet) 100 mg PO DAILY [facility] [place] Last Admin: 03/10/25 09:06 Dose: 100 mg Trazodone HCl (Trazodone Hcl 50 Mg Tablet) 50 mg PO BEDTIME MRX1 PRN PRN Reason: Insomnia Last Admin: 03/05/25 20:25 Dose: 50 mg Valsartan (Valsartan 40 Mg Tablet) 120 mg PO DAILY [facility] [place]; Protocol Last Admin: 03/10/25 09:05 Dose: 120 mg Vitamin D (Cholecalciferol (Vitamin D3) 25 Mcg Tablet) 25 mcg PO DAILY [facility]HI Last Admin: 03/10/25 09:06 Dose: 25 mcg Allergies Allergies Allergy/AdvReac Type Severity Reaction Status Date / Time ceftriaxone (From [facility]) AdvReac Severe Unknown Verified 02/01/25 20:31 lithium AdvReac Severe Unknown Verified 02/01/25 20:30 tiotropium AdvReac Severe Unknown Verified 02/01/25 20:31 trazodone AdvReac Severe Unknown Verified 02/01/25 20:30 quetiapine AdvReac Intermediate Unknown Verified 02/01/25 20:29 nefazodone AdvReac Unknown Verified 02/01/25 20:29 Assessment & Plan Assessment & Plan (1) Bipolar disorder, most recent episode depressed: Status: Acute Code(s): F31.30 - Bipolar disorder, current episode depressed, mild or moderate severity, unspecified (2) Suicide attempt by drug overdose: Status: Acute Code(s): T50.902A - Poisoning by unspecified drugs, medicaments and biological substances, intentional self-harm, initial encounter (3) Multifactorial dementia: Status: Acute Code(s): F03.90 - Unspecified dementia, unspecified severity, without behavioral disturbance, psychotic disturbance, mood disturbance, and anxiety (4) HTN (hypertension): Status: Acute Code(s): I10 - Essential (primary) hypertension (5) Anemia: Status: Acute Code(s): D64.9 - Anemia, unspecified Plan Some ability no classical reese. Attempting to help patient process recent overdose and cognitive dysfunction. Discussed different discharge potential options and what was realistic. Patient did not respond to Latuda or Vraylar continues on Depakote ammonia level okay 03/10: added Hydroxyzine PRN anxiety, should be monitored closely due to side effects in elderly pts Patient educated on: diagnosis and medication risk/benefits Informed Consent: understands Reason for continued inpatient stay Substantial Risk for: inability to function Time Spent With Patient Time: Total time managing care of this patient today __25__ minutes.
[2025-03-11 08:00] VITALS: BP 167/81; PULSE 72; RESP 14; TEMP 36.4; O2SAT 95
[2025-03-11] MEDS: methADONE HCl 20 MG/2 ML ORAL.CONC 25 MG PO (08:32)
[2025-03-11 08:33] VITALS: BP 167/81
[2025-03-11 08:34] VITALS: BP 167/81
[2025-03-11 15:24] VITALS: BP 112/67; PULSE 46
[2025-03-11 20:00] VITALS: BP 107/73; PULSE 54; RESP 18; TEMP 36.3; O2SAT 94
[2025-03-11 21:24] VITALS: BP 107/73; PULSE 57
--- NOTE | 2025-03-11 23:39 | P.PNPSI_ITS ---
Subjective Subjective Date of Service: 03/11/25 Reason For Visit: F05.8, F31.81 Subjective Notes: Conditional Voluntary Healthcare Proxy: Yes (sister) Guardianship: No Medical Problems Affecting Mental Status: No Interim History: Patient seen in her room. She was calm, communicative. She say that she is feeling homesick She states that she remains upset because of the plan for her to go to a fpc facility. She reports benefit from the Hydroxyzine she received last night. She states that she understands that her family wants her to be safe but that she feels a fpc facility is excessive. She also is worried about her finances being severely restricted as a result. She denies suicidal ideation, though she speculates that she may become hopeless at a group home. Today she was oriented to person, place, date. Medication Compliance: Yes Side effects from medications: No Attending Groups: Intermittent Review of Systems Acute medical concerns: No Medical Review of Systems: unchanged Review of Systems Review of Systems Yes all other systems are reviewed and are negative Mental Status Exam Mental Status Exam Narrative: Patient Appearance: Well Groomed, adequate hygiene Patient Behavior: Appropriate Level of Consciousness: Awake, alert Patient Orientation: Person, Place and Time, situational context Memory: grossly intact to recent events Psychomotor: no agitation or slowing Speech: normal rate, tone, volume Mood: ?homesick? Affect: appropriate range Thought Process: Goal Oriented Thought Content: denies SI/HI; focused on disposition questions Hallucinations: Denies; does not appear preoccupied Delusions: None evinced Insight: impairment Judgment: impairment Impulsivity: low Diagnostics Vital Signs (24Hr): Vital Signs - 24 hr 03/11/25 08:00 03/11/25 08:33 03/11/25 08:34 Temperature 97.5 F Pulse Rate 72 Respiratory Rate 14 Blood Pressure 167/81 H 167/81 H 167/81 H Pulse Oximetry 95 Oxygen Delivery Method Room Air 03/11/25 08:34 03/11/25 15:24 03/11/25 20:00 Temperature 97.4 F Pulse Rate 46 L 54 Respiratory Rate 18 Blood Pressure 167/81 H 112/67 107/73 Pulse Oximetry 94 Oxygen Delivery Method Room Air 03/11/25 21:24 Temperature Pulse Rate 57 Respiratory Rate Blood Pressure 107/73 Pulse Oximetry Oxygen Delivery Method BMI result Body Mass Index 22.1 Labs 03/07/25 07:33 03/03/25 15:25 Imaging Radiology Impressions: ITS Impressions Brain MRI 02/09/25 15:21 IMPRESSION: 1. No evidence of intracranial hemorrhage, acute infarction, mass effect, or edema. 2. Mildly age advanced cerebral and cerebellar volume loss. 3. Mild changes of small vessel ischemia. Electronically signed by: Freeman López MD 02/09/2025 04:20 PM EDT RP SPECT Scan-Brain NM 02/15/25 14:22 IMPRESSION: Decreased bifrontal perfusion greater on the left side. Decrease perfusion in left thalamus, left jeremy and midbrain. This could be secondary to patient being dominant right handed. CT reveals no acute intracranial process. There is however mild bilateral frontal volume loss. Electronically signed by: Jose Luis Gardiner MD 02/16/2025 11:15 AM EDT RP Lumbar Spine X-Ray 03/06/25 12:07 IMPRESSION: Moderate S-shaped scoliosis with multilevel degenerative disc disease and facet osteoarthritis. Additionally, there is grade 1 anterolisthesis at L4-5. Electronically signed by: Mitesh Bueno MD 03/06/2025 12:19 PM [facility] RP Medications Medications Current Medications Acetaminophen (Acetaminophen 325 Mg Tablet) 650 mg PO Q6H PRN PRN Reason: Headache/Pain, Scale 1-10 Last Admin: 03/11/25 15:19 Dose: 650 mg Al Hydroxide/Mg Hydroxide (Magnesium Hydrox/Alum Hydrox 30 Ml Oral.Susp) 30 ml PO Q6H PRN PRN Reason: Heartburn/Nausea Last Admin: 02/27/25 18:40 Dose: 30 ml Albuterol Sulfate (Albuterol Sulfate 90 Mcg 8 Gm Inhaler) 2 puff INHALE Q4H PRN PRN Reason: Wheezing Atorvastatin Calcium (Atorvastatin Calcium 80 Mg Tablet) 80 mg PO DAILY [facility]HI Last Admin: 03/11/25 08:34 Dose: 80 mg Clonazepam (Clonazepam 0.5 Mg Tablet) 0.5 mg PO BID PRN PRN Reason: Anxiety Last Admin: 03/11/25 11:58 Dose: 0.5 mg Clonidine HCl (Clonidine Hcl 0.1 Mg Tablet) 0.1 mg PO TID PRN; Protocol PRN Reason: Anxiety Last Admin: 03/09/25 16:01 Dose: 0.1 mg Divalproex Sodium (Divalproex Sodium Er 500 Mg Tab.Er.24h) 1,000 mg PO BEDTIME [facility] Last Admin: 03/11/25 21:21 Dose: 1,000 mg Docusate Sodium (Docusate Sodium 100 Mg Capsule) 100 mg PO BID [facility] Last Admin: 03/11/25 21:21 Dose: 100 mg Donepezil HCl (Donepezil Hcl 10 Mg Tablet) 10 mg PO DAILY [facility] Last Admin: 03/11/25 08:34 Dose: 10 mg Gabapentin (Gabapentin 400 Mg Capsule) 400 mg PO TID [facility] Last Admin: 03/11/25 21:24 Dose: 400 mg Hydroxyzine HCl (Hydroxyzine Hcl 25 Mg Tablet) 25 mg PO Q8H PRN PRN Reason: Anxiety Last Admin: 03/11/25 17:57 Dose: 25 mg Magnesium Hydroxide (Milk Of Magnesia 30 Ml Oral.Susp) 30 ml PO DAILY PRN PRN Reason: Constipation Memantine (Memantine Hcl 5 Mg Tablet) 5 mg PO DAILY [facility] Last Admin: 03/11/25 08:34 Dose: 5 mg Methadone HCl (Methadone Hcl 20 Mg/2 Ml Oral.Conc) 25 mg PO DAILY [facility] Last Admin: 03/11/25 08:32 Dose: 25 mg Nicotine Polacrilex (Nicotine Polacrilex 2 Mg Gum) 2 mg BUCCAL Q2H PRN PRN Reason: Nicotine Cravings Last Admin: 02/11/25 14:21 Dose: 2 mg Olanzapine (Olanzapine 5 Mg Tablet) 5 mg PO BEDTIME PRN PRN Reason: agitation Last Admin: 03/03/25 18:02 Dose: 5 mg Olanzapine (Olanzapine 5 Mg Tablet) 5 mg PO BEDTIME [facility] Last Admin: 03/11/25 21:24 Dose: 5 mg Omeprazole (Omeprazole 20 Mg Capsule.Dr) 20 mg PO BID@0630,1630 [facility] Last Admin: 03/11/25 17:57 Dose: 20 mg Propranolol HCl (Propranolol Hcl 20 Mg Tablet) 20 mg PO TID [facility]; Protocol Last Admin: 03/11/25 21:24 Dose: Not Given Senna (Sennosides 8.6 Mg Tablet) 17.2 mg PO BEDTIME [facility] Last Admin: 03/11/25 21:21 Dose: 17.2 mg Spironolactone (Spironolactone 25 Mg Tablet) 50 mg PO DAILY [facility]; Protocol Last Admin: 03/11/25 08:34 Dose: 50 mg Thiamine HCl (Thiamine Hcl 100 Mg Tablet) 100 mg PO DAILY [facility] Last Admin: 03/11/25 08:34 Dose: 100 mg Trazodone HCl (Trazodone Hcl 50 Mg Tablet) 50 mg PO BEDTIME MRX1 PRN PRN Reason: Insomnia Last Admin: 03/05/25 20:25 Dose: 50 mg Valsartan (Valsartan 40 Mg Tablet) 120 mg PO DAILY [facility]; Protocol Last Admin: 03/11/25 08:34 Dose: 120 mg Vitamin D (Cholecalciferol (Vitamin D3) 25 Mcg Tablet) 25 mcg PO DAILY [facility] Last Admin: 03/11/25 08:34 Dose: 25 mcg Allergies Allergies Allergy/AdvReac Type Severity Reaction Status Date / Time ceftriaxone (From [facility]) AdvReac Severe Unknown Verified 02/01/25 20:31 lithium AdvReac Severe Unknown Verified 02/01/25 20:30 tiotropium AdvReac Severe Unknown Verified 02/01/25 20:31 trazodone AdvReac Severe Unknown Verified 02/01/25 20:30 quetiapine AdvReac Intermediate Unknown Verified 02/01/25 20:29 nefazodone AdvReac Unknown Verified 02/01/25 20:29 Assessment & Plan Assessment & Plan (1) Bipolar disorder, most recent episode depressed: Status: Acute Code(s): F31.30 - Bipolar disorder, current episode depressed, mild or moderate severity, unspecified (2) Suicide attempt by drug overdose: Status: Acute Code(s): T50.902A - Poisoning by unspecified drugs, medicaments and biological substances, intentional self-harm, initial encounter (3) Multifactorial dementia: Status: Acute Code(s): F03.90 - Unspecified dementia, unspecified severity, without behavioral disturbance, psychotic disturbance, mood disturbance, and anxiety (4) HTN (hypertension): Status: Acute Code(s): I10 - Essential (primary) hypertension (5) Anemia: Status: Acute Code(s): D64.9 - Anemia, unspecified Plan Some ability no classical reese. Attempting to help patient process recent overdose and cognitive dysfunction. Discussed different discharge potential options and what was realistic. Patient did not respond to Latuda or Vraylar continues on Depakote ammonia level okay 03/10: added Hydroxyzine PRN anxiety, should be monitored closely due to side effects in elderly pts 03/11: no change - primary team may review and hold Hydroxyzine - patient aware Patient educated on: diagnosis and medication risk/benefits Informed Consent: understands Reason for continued inpatient stay Substantial Risk for: inability to function Time Spent With Patient Time: Total time managing care of this patient today _15___ minutes.
[2025-03-12 08:51] VITALS: BP 153/80; PULSE 68; RESP 18; TEMP 36.4; O2SAT 97
[2025-03-12] MEDS: methADONE HCl 20 MG/2 ML ORAL.CONC 25 MG PO (08:52)
[2025-03-12 10:22] VITALS: BP 153/80; PULSE 68; O2SAT 97
[2025-03-12 14:28] VITALS: BP 107/67; PULSE 48
[2025-03-12 15:19] VITALS: BP 134/83; PULSE 52; RESP 18; TEMP 36.5; O2SAT 100
[2025-03-12 19:45] VITALS: BP 118/60; PULSE 57; RESP 16; TEMP 36.5; O2SAT 97
[2025-03-12 19:49] VITALS: BP 118/60; PULSE 57
[2025-03-13 08:10] VITALS: BP 127/72; PULSE 59; RESP 16; TEMP 36.7; O2SAT 97
[2025-03-13] MEDS: methADONE HCl 20 MG/2 ML ORAL.CONC 25 MG PO (08:53)
--- NOTE | 2025-03-13 09:30 | HO.PSYCHPN ---
Subjective Subjective Date of Service: 03/12/25 Reason For Visit: F05.8, F31.81 Subjective Notes: Conditional Voluntary Healthcare Proxy: Yes Interim History: Patient seen psychiatric follow-up. Case reviewed in treatment planning chart reviewed patient seen. Patient continues to be upset over half-way facility referral. Periods of sadness denies SI Sleep and appetite okay no manic symptoms noted. Medication Compliance: Yes Side effects from medications: Yes Attending Groups: Intermittent Review of Systems Acute medical concerns: No Mental Status Exam Mental Status Exam Narrative: Patient Appearance: Well Groomed, adequate hygiene Patient Behavior: Appropriate Level of Consciousness: Awake, alert Patient Orientation: Person, Place and Time, knows she is in hospital Memory: grossly intact to recent events has been regaining more episodic memory Psychomotor: no agitation or slowing Speech: normal rate, tone, volume Mood: Despondent at times Affect: appropriate range Thought Process: Goal Oriented Thought Content: denies SI/HI; focused on disposition questions fear of being locked away her whole life Hallucinations: Denies; does not appear preoccupied Delusions: None evinced Insight: Variable confused at times as she is regaining some of her functioning Judgment: impairment Impulsivity: low Diagnostics Vital Signs (24Hr): Vital Signs - 24 hr 03/12/25 10:22 03/12/25 14:28 03/12/25 15:19 Temperature 97.7 F Pulse Rate 68 48 L 52 Respiratory Rate 18 Blood Pressure 153/80 H 107/67 134/83 Pulse Oximetry 97 100 Oxygen Delivery Method Room Air 03/12/25 19:45 03/12/25 19:49 03/13/25 08:10 Temperature 97.7 F 98.1 F Pulse Rate 57 57 59 Respiratory Rate 16 16 Blood Pressure 118/60 118/60 127/72 Pulse Oximetry 97 97 Oxygen Delivery Method Room Air Room Air BMI result Body Mass Index 22.1 Labs 03/07/25 07:33 03/03/25 15:25 Imaging Radiology Impressions: ITS Impressions Brain MRI 02/09/25 15:21 IMPRESSION: 1. No evidence of intracranial hemorrhage, acute infarction, mass effect, or edema. 2. Mildly age advanced cerebral and cerebellar volume loss. 3. Mild changes of small vessel ischemia. Electronically signed by: Freeman López MD 02/09/2025 04:20 PM EDT SPECT Scan-Brain NM 02/15/25 14:22 IMPRESSION: Decreased bifrontal perfusion greater on the left side. Decrease perfusion in left thalamus, left jeremy and midbrain. This could be secondary to patient being dominant right handed. CT reveals no acute intracranial process. There is however mild bilateral frontal volume loss. Electronically signed by: Jose Luis Gardiner MD 02/16/2025 11:15 AM EDT RP Lumbar Spine X-Ray 03/06/25 12:07 IMPRESSION: Moderate S-shaped scoliosis with multilevel degenerative disc disease and facet osteoarthritis. Additionally, there is grade 1 anterolisthesis at L4-5. Electronically signed by: Mitesh Bueno MD 03/06/2025 12:19 PM EST RP Medications Medications Current Medications Acetaminophen (Acetaminophen 325 Mg Tablet) 650 mg PO Q6H PRN PRN Reason: Headache/Pain, Scale 1-10 Last Admin: 03/12/25 08:53 Dose: 650 mg Al Hydroxide/Mg Hydroxide (Magnesium Hydrox/Alum Hydrox 30 Ml Oral.Susp) 30 ml PO Q6H PRN PRN Reason: Heartburn/Nausea Last Admin: 02/27/25 18:40 Dose: 30 ml Albuterol Sulfate (Albuterol Sulfate 90 Mcg 8 Gm Inhaler) 2 puff INHALE Q4H PRN PRN Reason: Wheezing Atorvastatin Calcium (Atorvastatin Calcium 80 Mg Tablet) 80 mg PO DAILY [facility] Last Admin: 03/13/25 08:57 Dose: 80 mg Clonazepam (Clonazepam 0.5 Mg Tablet) 0.5 mg PO BID PRN PRN Reason: Anxiety Last Admin: 03/12/25 10:55 Dose: 0.5 mg Clonidine HCl (Clonidine Hcl 0.1 Mg Tablet) 0.1 mg PO TID PRN; Protocol PRN Reason: Anxiety Last Admin: 03/09/25 16:01 Dose: 0.1 mg Divalproex Sodium (Divalproex Sodium Er 500 Mg Tab.Er.24h) 1,000 mg PO BEDTIME [facility] Last Admin: 03/12/25 19:50 Dose: 1,000 mg Docusate Sodium (Docusate Sodium 100 Mg Capsule) 100 mg PO BID [facility] Last Admin: 03/13/25 08:56 Dose: 100 mg Donepezil HCl (Donepezil Hcl 10 Mg Tablet) 10 mg PO DAILY [facility] Last Admin: 03/13/25 08:58 Dose: 10 mg Gabapentin (Gabapentin 400 Mg Capsule) 400 mg PO TID [facility] Last Admin: 03/13/25 08:58 Dose: 400 mg Hydroxyzine HCl (Hydroxyzine Hcl 25 Mg Tablet) 25 mg PO Q8H PRN PRN Reason: Anxiety Last Admin: 03/12/25 17:05 Dose: 25 mg Magnesium Hydroxide (Milk Of Magnesia 30 Ml Oral.Susp) 30 ml PO DAILY PRN PRN Reason: Constipation Memantine (Memantine Hcl 5 Mg Tablet) 5 mg PO DAILY [facility] Last Admin: 03/13/25 08:55 Dose: 5 mg Methadone HCl (Methadone Hcl 20 Mg/2 Ml Oral.Conc) 25 mg PO DAILY [facility] Last Admin: 03/13/25 08:53 Dose: 25 mg Nicotine Polacrilex (Nicotine Polacrilex 2 Mg Gum) 2 mg BUCCAL Q2H PRN PRN Reason: Nicotine Cravings Last Admin: 02/11/25 14:21 Dose: 2 mg Olanzapine (Olanzapine 5 Mg Tablet) 5 mg PO BEDTIME PRN PRN Reason: agitation Last Admin: 03/03/25 18:02 Dose: 5 mg Olanzapine (Olanzapine 5 Mg Tablet) 5 mg PO BEDTIME [facility] Last Admin: 03/12/25 19:49 Dose: 5 mg Omeprazole (Omeprazole 20 Mg Capsule.Dr) 20 mg PO BID@0630,1630 [facility] Last Admin: 03/13/25 05:32 Dose: 20 mg Propranolol HCl (Propranolol Hcl 20 Mg Tablet) 20 mg PO TID [facility]; Protocol Last Admin: 03/13/25 08:57 Dose: Not Given Senna (Sennosides 8.6 Mg Tablet) 17.2 mg PO BEDTIME [facility] Last Admin: 03/12/25 19:49 Dose: 17.2 mg Spironolactone (Spironolactone 25 Mg Tablet) 50 mg PO DAILY [facility]; Protocol Last Admin: 03/13/25 08:56 Dose: 50 mg Thiamine HCl (Thiamine Hcl 100 Mg Tablet) 100 mg PO DAILY [facility] Last Admin: 03/13/25 08:56 Dose: 100 mg Trazodone HCl (Trazodone Hcl 50 Mg Tablet) 50 mg PO BEDTIME MRX1 PRN PRN Reason: Insomnia Last Admin: 03/05/25 20:25 Dose: 50 mg Valsartan (Valsartan 40 Mg Tablet) 120 mg PO DAILY [facility]; Protocol Last Admin: 03/13/25 08:55 Dose: 120 mg Vitamin D (Cholecalciferol (Vitamin D3) 25 Mcg Tablet) 25 mcg PO DAILY [facility] Last Admin: 03/13/25 08:56 Dose: 25 mcg Allergies Allergies Allergy/AdvReac Type Severity Reaction Status Date / Time ceftriaxone (From Rocephin) AdvReac Severe Unknown Verified 02/01/25 20:31 lithium AdvReac Severe Unknown Verified 02/01/25 20:30 tiotropium AdvReac Severe Unknown Verified 02/01/25 20:31 trazodone AdvReac Severe Unknown Verified 02/01/25 20:30 quetiapine AdvReac Intermediate Unknown Verified 02/01/25 20:29 nefazodone AdvReac Unknown Verified 02/01/25 20:29 Assessment & Plan Assessment & Plan (1) Bipolar disorder, most recent episode depressed: Status: Acute Code(s): F31.30 - Bipolar disorder, current episode depressed, mild or moderate severity, unspecified (2) Suicide attempt by drug overdose: Status: Acute Code(s): T50.902A - Poisoning by unspecified drugs, medicaments and biological substances, intentional self-harm, initial encounter (3) Multifactorial dementia: Status: Acute Code(s): F03.90 - Unspecified dementia, unspecified severity, without behavioral disturbance, psychotic disturbance, mood disturbance, and anxiety (4) HTN (hypertension): Status: Acute Code(s): I10 - Essential (primary) hypertension (5) Anemia: Status: Acute Code(s): D64.9 - Anemia, unspecified Plan Some ability no classical reese. Attempting to help patient process recent overdose and cognitive dysfunction. Discussed different discharge potential options and what was realistic. Patient did not respond to Latuda or Vraylar continues on Depakote ammonia level okay 03/10: added Hydroxyzine PRN anxiety, should be monitored closely due to side effects in elderly pts 03/11: no change - primary team may review and hold Hydroxyzine - patient aware 03/12/2025 Patient on propranolol for familial tremor Depakote for what appears to be bipolar 2 history with mixed states olanzapine And sertraline for depression patient has tentative acceptance at half-way facility. Given a lot of feedback regarding what this would entail recommendations for rehab continue Namenda for help with cognitive issues patient has been better in processing information Patient educated on: diagnosis, medication risk/benefits and medical condition Informed Consent: further education needed Reason for continued inpatient stay Substantial Risk for: inability to function, rapid decompensation and med/psych decompensation Time Spent With Patient Time: Total time managing care of this patient today 30____ minutes.
--- NOTE | 2025-03-13 09:31 | HO.PSYCHPN ---
Subjective Subjective Date of Service: 03/13/25 Reason For Visit: F05.8, F31.81 Subjective Notes: Conditional Voluntary Healthcare Proxy: Yes Interim History: Patient has been more accepting of current referrals to half-way facility. She continues at times to feel that she could handle things non structured setting feels that she is regaining much of her functioning. She does have less periods of confusion. Better able to give history Medication Compliance: Yes Mental Status Exam Mental Status Exam Narrative: Patient Appearance: Well Groomed, adequate hygiene Patient Behavior: Appropriate Level of Consciousness: Awake, alert Patient Orientation: Person, Place and Time, knows her current situation Memory: grossly intact to recent events has been regaining more episodic memory Psychomotor: no agitation or slowing Speech: normal rate, tone, volume Mood: Despondent at times at other times more hopeful Affect: appropriate range Thought Process: Goal Oriented Thought Content: denies SI/HI; Hallucinations: Denies; does not appear preoccupied Delusions: None evinced Insight: Variable confused at times as she is regaining some of her functioning Judgment: impairment Impulsivity: low Diagnostics Vital Signs (24Hr): Vital Signs - 24 hr 03/12/25 10:22 03/12/25 14:28 03/12/25 15:19 Temperature 97.7 F Pulse Rate 68 48 L 52 Respiratory Rate 18 Blood Pressure 153/80 H 107/67 134/83 Pulse Oximetry 97 100 Oxygen Delivery Method Room Air 03/12/25 19:45 03/12/25 19:49 03/13/25 08:10 Temperature 97.7 F 98.1 F Pulse Rate 57 57 59 Respiratory Rate 16 16 Blood Pressure 118/60 118/60 127/72 Pulse Oximetry 97 97 Oxygen Delivery Method Room Air Room Air BMI result Body Mass Index 22.1 Labs 03/07/25 07:33 03/03/25 15:25 Imaging Radiology Impressions: ITS Impressions Brain MRI 02/09/25 15:21 IMPRESSION: 1. No evidence of intracranial hemorrhage, acute infarction, mass effect, or edema. 2. Mildly age advanced cerebral and cerebellar volume loss. 3. Mild changes of small vessel ischemia. Electronically signed by: Freeman López MD 02/09/2025 04:20 PM EDT SPECT Scan-Brain NM 02/15/25 14:22 IMPRESSION: Decreased bifrontal perfusion greater on the left side. Decrease perfusion in left thalamus, left jeremy and midbrain. This could be secondary to patient being dominant right handed. CT reveals no acute intracranial process. There is however mild bilateral frontal volume loss. Electronically signed by: Jose Luis Gardiner MD 02/16/2025 11:15 AM EDT RP Lumbar Spine X-Ray 03/06/25 12:07 IMPRESSION: Moderate S-shaped scoliosis with multilevel degenerative disc disease and facet osteoarthritis. Additionally, there is grade 1 anterolisthesis at L4-5. Electronically signed by: Mitesh Bueno MD 03/06/2025 12:19 PM EST RP Medications Medications Current Medications Acetaminophen (Acetaminophen 325 Mg Tablet) 650 mg PO Q6H PRN PRN Reason: Headache/Pain, Scale 1-10 Last Admin: 03/12/25 08:53 Dose: 650 mg Al Hydroxide/Mg Hydroxide (Magnesium Hydrox/Alum Hydrox 30 Ml Oral.Susp) 30 ml PO Q6H PRN PRN Reason: Heartburn/Nausea Last Admin: 02/27/25 18:40 Dose: 30 ml Albuterol Sulfate (Albuterol Sulfate 90 Mcg 8 Gm Inhaler) 2 puff INHALE Q4H PRN PRN Reason: Wheezing Atorvastatin Calcium (Atorvastatin Calcium 80 Mg Tablet) 80 mg PO DAILY [facility] Last Admin: 03/13/25 08:57 Dose: 80 mg Clonazepam (Clonazepam 0.5 Mg Tablet) 0.5 mg PO BID PRN PRN Reason: Anxiety Last Admin: 03/12/25 10:55 Dose: 0.5 mg Clonidine HCl (Clonidine Hcl 0.1 Mg Tablet) 0.1 mg PO TID PRN; Protocol PRN Reason: Anxiety Last Admin: 03/09/25 16:01 Dose: 0.1 mg Divalproex Sodium (Divalproex Sodium Er 500 Mg Tab.Er.24h) 1,000 mg PO BEDTIME [facility] Last Admin: 03/12/25 19:50 Dose: 1,000 mg Docusate Sodium (Docusate Sodium 100 Mg Capsule) 100 mg PO BID [facility] Last Admin: 03/13/25 08:56 Dose: 100 mg Donepezil HCl (Donepezil Hcl 10 Mg Tablet) 10 mg PO DAILY [facility] Last Admin: 03/13/25 08:58 Dose: 10 mg Gabapentin (Gabapentin 400 Mg Capsule) 400 mg PO TID [facility] Last Admin: 03/13/25 08:58 Dose: 400 mg Hydroxyzine HCl (Hydroxyzine Hcl 25 Mg Tablet) 25 mg PO Q8H PRN PRN Reason: Anxiety Last Admin: 03/12/25 17:05 Dose: 25 mg Magnesium Hydroxide (Milk Of Magnesia 30 Ml Oral.Susp) 30 ml PO DAILY PRN PRN Reason: Constipation Memantine (Memantine Hcl 5 Mg Tablet) 5 mg PO DAILY [facility] Last Admin: 03/13/25 08:55 Dose: 5 mg Methadone HCl (Methadone Hcl 20 Mg/2 Ml Oral.Conc) 25 mg PO DAILY [facility] Last Admin: 03/13/25 08:53 Dose: 25 mg Nicotine Polacrilex (Nicotine Polacrilex 2 Mg Gum) 2 mg BUCCAL Q2H PRN PRN Reason: Nicotine Cravings Last Admin: 02/11/25 14:21 Dose: 2 mg Olanzapine (Olanzapine 5 Mg Tablet) 5 mg PO BEDTIME PRN PRN Reason: agitation Last Admin: 03/03/25 18:02 Dose: 5 mg Olanzapine (Olanzapine 5 Mg Tablet) 5 mg PO BEDTIME [facility] Last Admin: 03/12/25 19:49 Dose: 5 mg Omeprazole (Omeprazole 20 Mg Capsule.Dr) 20 mg PO BID@0630,1630 [facility] Last Admin: 03/13/25 05:32 Dose: 20 mg Propranolol HCl (Propranolol Hcl 20 Mg Tablet) 20 mg PO TID [facility]; Protocol Last Admin: 03/13/25 08:57 Dose: Not Given Senna (Sennosides 8.6 Mg Tablet) 17.2 mg PO BEDTIME [facility] Last Admin: 03/12/25 19:49 Dose: 17.2 mg Spironolactone (Spironolactone 25 Mg Tablet) 50 mg PO DAILY [facility]; Protocol Last Admin: 03/13/25 08:56 Dose: 50 mg Thiamine HCl (Thiamine Hcl 100 Mg Tablet) 100 mg PO DAILY [facility] Last Admin: 03/13/25 08:56 Dose: 100 mg Trazodone HCl (Trazodone Hcl 50 Mg Tablet) 50 mg PO BEDTIME MRX1 PRN PRN Reason: Insomnia Last Admin: 03/05/25 20:25 Dose: 50 mg Valsartan (Valsartan 40 Mg Tablet) 120 mg PO DAILY [facility]; Protocol Last Admin: 03/13/25 08:55 Dose: 120 mg Vitamin D (Cholecalciferol (Vitamin D3) 25 Mcg Tablet) 25 mcg PO DAILY [facility] Last Admin: 03/13/25 08:56 Dose: 25 mcg Allergies Allergies Allergy/AdvReac Type Severity Reaction Status Date / Time ceftriaxone (From Rocephin) AdvReac Severe Unknown Verified 02/01/25 20:31 lithium AdvReac Severe Unknown Verified 02/01/25 20:30 tiotropium AdvReac Severe Unknown Verified 02/01/25 20:31 trazodone AdvReac Severe Unknown Verified 02/01/25 20:30 quetiapine AdvReac Intermediate Unknown Verified 02/01/25 20:29 nefazodone AdvReac Unknown Verified 02/01/25 20:29 Assessment & Plan Assessment & Plan (1) Bipolar disorder, most recent episode depressed: Status: Acute Code(s): F31.30 - Bipolar disorder, current episode depressed, mild or moderate severity, unspecified (2) Suicide attempt by drug overdose: Status: Acute Code(s): T50.902A - Poisoning by unspecified drugs, medicaments and biological substances, intentional self-harm, initial encounter (3) Multifactorial dementia: Status: Acute Code(s): F03.90 - Unspecified dementia, unspecified severity, without behavioral disturbance, psychotic disturbance, mood disturbance, and anxiety (4) HTN (hypertension): Status: Acute Code(s): I10 - Essential (primary) hypertension (5) Anemia: Status: Acute Code(s): D64.9 - Anemia, unspecified Plan Some ability no classical reese. Attempting to help patient process recent overdose and cognitive dysfunction. Discussed different discharge potential options and what was realistic. Patient did not respond to Latuda or Vraylar continues on Depakote ammonia level okay 03/10: added Hydroxyzine PRN anxiety, should be monitored closely due to side effects in elderly pts 03/11: no change - primary team may review and hold Hydroxyzine - patient aware 03/13/2025 Patient is scheduled for discharge tomorrow continue Dorinda Depakote olanzapine. Discussed with patient consideration of retesting in a few months to see if she has been able to improve further regarding her cognitive skills Plan to discharge to half-way facility near her sister on the [facility] tomorrow as possible Patient educated on: diagnosis and medication risk/benefits Informed Consent: further education needed Reason for continued inpatient stay Substantial Risk for: rapid decompensation and med/psych decompensation Time Spent With Patient Time: Total time managing care of this patient today 30____ minutes.
[2025-03-13 14:52] VITALS: BP 112/72; PULSE 55; RESP 16
[2025-03-13 20:00] VITALS: BP 140/70; PULSE 67; RESP 17; TEMP 36.5; O2SAT 100
[2025-03-13 20:05] VITALS: BP 140/70; PULSE 67
[2025-03-14 08:00] VITALS: BP 139/94; PULSE 74; RESP 16; TEMP 36.8; O2SAT 99
[2025-03-14] MEDS: methADONE HCl 20 MG/2 ML ORAL.CONC 25 MG PO (09:09)
[2025-03-14 15:04] VITALS: BP 122/67; PULSE 51
[2025-03-14 20:10] VITALS: BP 171/87; PULSE 51; RESP 15; TEMP 36.6; O2SAT 100
[2025-03-14 20:12] VITALS: BP 171/87; PULSE 51
[2025-03-14 21:04] VITALS: BP 171/87
--- NOTE | 2025-03-14 21:44 | HO.PSYCHPN ---
Subjective Subjective Date of Service: 03/14/25 Reason For Visit: F05.8, F31.81 Subjective Notes: Conditional Voluntary Healthcare Proxy: Yes Interim History: Patient seen psychiatric follow-up. Patient was feeling increasingly erratic labile was triggered when she found that a roommate had been referred potentially to assisted living. Patient needed much reassurance regarding recommendations for reconsidering need for long-term residential placement as she has been making gains. At times becomes overwhelmed with need for supervision in her living situation Medication Compliance: Yes Side effects from medications: No Attending Groups: Intermittent Mental Status Exam Mental Status Exam Narrative: Patient Appearance: Well Groomed, adequate hygiene Patient Behavior: Appropriate Level of Consciousness: Awake, alert Patient Orientation: Person, Place and Time, knows her current situation Memory: grossly intact to recent events has been regaining more episodic memory Psychomotor: no agitation or slowing Speech: normal rate, tone, volume Mood: Despondent at times at other times more hopeful Affect: appropriate range Thought Process: Goal Oriented Thought Content: denies SI/HI; Hallucinations: Denies; does not appear preoccupied Delusions: None evinced Insight: At times overwhelmed with emotion when realizing that she is being referred to residential facility and variable insight into the reasons Judgment: impairment Impulsivity: low Diagnostics Vital Signs (24Hr): Vital Signs - 24 hr 03/14/25 08:00 03/14/25 15:04 03/14/25 20:10 Temperature 98.2 F 97.8 F Pulse Rate 74 51 51 Respiratory Rate 16 15 Blood Pressure 139/94 H 122/67 171/87 H Pulse Oximetry 99 100 Oxygen Delivery Method Room Air 03/14/25 20:12 03/14/25 21:04 Temperature Pulse Rate 51 Respiratory Rate Blood Pressure 171/87 H 171/87 H Pulse Oximetry Oxygen Delivery Method BMI result Body Mass Index 22.1 Labs 03/07/25 07:33 03/03/25 15:25 Imaging Radiology Impressions: ITS Impressions Brain MRI 02/09/25 15:21 IMPRESSION: 1. No evidence of intracranial hemorrhage, acute infarction, mass effect, or edema. 2. Mildly age advanced cerebral and cerebellar volume loss. 3. Mild changes of small vessel ischemia. Electronically signed by: Freeman López MD 02/09/2025 04:20 PM EDT SPECT Scan-Brain NM 02/15/25 14:22 IMPRESSION: Decreased bifrontal perfusion greater on the left side. Decrease perfusion in left thalamus, left jeremy and midbrain. This could be secondary to patient being dominant right handed. CT reveals no acute intracranial process. There is however mild bilateral frontal volume loss. Electronically signed by: Jose Luis Gardiner MD 02/16/2025 11:15 AM EDT RP Lumbar Spine X-Ray 03/06/25 12:07 IMPRESSION: Moderate S-shaped scoliosis with multilevel degenerative disc disease and facet osteoarthritis. Additionally, there is grade 1 anterolisthesis at L4-5. Electronically signed by: Mitesh Bueno MD 03/06/2025 12:19 PM EST RP Medications Medications Current Medications Acetaminophen (Acetaminophen 325 Mg Tablet) 650 mg PO Q6H PRN PRN Reason: Headache/Pain, Scale 1-10 Last Admin: 03/14/25 10:41 Dose: 650 mg Al Hydroxide/Mg Hydroxide (Magnesium Hydrox/Alum Hydrox 30 Ml Oral.Susp) 30 ml PO Q6H PRN PRN Reason: Heartburn/Nausea Last Admin: 02/27/25 18:40 Dose: 30 ml Albuterol Sulfate (Albuterol Sulfate 90 Mcg 8 Gm Inhaler) 2 puff INHALE Q4H PRN PRN Reason: Wheezing Atorvastatin Calcium (Atorvastatin Calcium 80 Mg Tablet) 80 mg PO DAILY [facility] Last Admin: 03/14/25 09:03 Dose: 80 mg Clonazepam (Clonazepam 0.5 Mg Tablet) 0.5 mg PO BID PRN PRN Reason: Anxiety Last Admin: 03/14/25 16:29 Dose: 0.5 mg Clonidine HCl (Clonidine Hcl 0.1 Mg Tablet) 0.1 mg PO TID PRN; Protocol PRN Reason: Anxiety Last Admin: 03/14/25 21:04 Dose: 0.1 mg Divalproex Sodium (Divalproex Sodium Er 500 Mg Tab.Er.24h) 1,000 mg PO BEDTIME [facility] Last Admin: 03/14/25 20:13 Dose: 1,000 mg Docusate Sodium (Docusate Sodium 100 Mg Capsule) 100 mg PO BID [facility] Last Admin: 03/14/25 20:12 Dose: 100 mg Donepezil HCl (Donepezil Hcl 10 Mg Tablet) 10 mg PO DAILY [facility] Last Admin: 03/14/25 09:03 Dose: 10 mg Gabapentin (Gabapentin 400 Mg Capsule) 400 mg PO TID [facility] Last Admin: 03/14/25 20:12 Dose: 400 mg Hydroxyzine HCl (Hydroxyzine Hcl 25 Mg Tablet) 25 mg PO Q8H PRN PRN Reason: Anxiety Last Admin: 03/14/25 15:04 Dose: 25 mg Magnesium Hydroxide (Milk Of Magnesia 30 Ml Oral.Susp) 30 ml PO DAILY PRN PRN Reason: Constipation Memantine (Memantine Hcl 5 Mg Tablet) 5 mg PO DAILY [facility] Last Admin: 03/14/25 09:04 Dose: 5 mg Methadone HCl (Methadone Hcl 20 Mg/2 Ml Oral.Conc) 25 mg PO DAILY [facility] Last Admin: 03/14/25 09:09 Dose: 25 mg Nicotine Polacrilex (Nicotine Polacrilex 2 Mg Gum) 2 mg BUCCAL Q2H PRN PRN Reason: Nicotine Cravings Last Admin: 02/11/25 14:21 Dose: 2 mg Olanzapine (Olanzapine 5 Mg Tablet) 5 mg PO BEDTIME PRN PRN Reason: agitation Last Admin: 03/14/25 21:05 Dose: 5 mg Olanzapine (Olanzapine 5 Mg Tablet) 5 mg PO BEDTIME [facility] Last Admin: 03/14/25 20:13 Dose: 5 mg Omeprazole (Omeprazole 20 Mg Capsule.Dr) 20 mg PO BID@0630,1630 [facility] Last Admin: 03/14/25 16:29 Dose: 20 mg Propranolol HCl (Propranolol Hcl 20 Mg Tablet) 20 mg PO TID [facility]; Protocol Last Admin: 03/14/25 20:12 Dose: 20 mg Senna (Sennosides 8.6 Mg Tablet) 17.2 mg PO BEDTIME [facility] Last Admin: 03/14/25 20:13 Dose: 17.2 mg Spironolactone (Spironolactone 25 Mg Tablet) 50 mg PO DAILY [facility]; Protocol Last Admin: 03/14/25 09:04 Dose: 50 mg Thiamine HCl (Thiamine Hcl 100 Mg Tablet) 100 mg PO DAILY [facility] Last Admin: 03/14/25 09:03 Dose: 100 mg Valsartan (Valsartan 40 Mg Tablet) 120 mg PO DAILY [facility]; Protocol Last Admin: 03/14/25 09:03 Dose: 120 mg Vitamin D (Cholecalciferol (Vitamin D3) 25 Mcg Tablet) 25 mcg PO DAILY [facility] Last Admin: 03/14/25 09:02 Dose: 25 mcg Allergies Allergies Allergy/AdvReac Type Severity Reaction Status Date / Time ceftriaxone (From Rocephin) AdvReac Severe Unknown Verified 02/01/25 20:31 lithium AdvReac Severe Unknown Verified 02/01/25 20:30 tiotropium AdvReac Severe Unknown Verified 02/01/25 20:31 trazodone AdvReac Severe Unknown Verified 02/01/25 20:30 quetiapine AdvReac Intermediate Unknown Verified 02/01/25 20:29 nefazodone AdvReac Unknown Verified 02/01/25 20:29 Assessment & Plan Assessment & Plan (1) Bipolar disorder, most recent episode depressed: Status: Acute Code(s): F31.30 - Bipolar disorder, current episode depressed, mild or moderate severity, unspecified (2) Suicide attempt by drug overdose: Status: Acute Code(s): T50.902A - Poisoning by unspecified drugs, medicaments and biological substances, intentional self-harm, initial encounter (3) Multifactorial dementia: Status: Acute Code(s): F03.90 - Unspecified dementia, unspecified severity, without behavioral disturbance, psychotic disturbance, mood disturbance, and anxiety (4) HTN (hypertension): Status: Acute Code(s): I10 - Essential (primary) hypertension (5) Anemia: Status: Acute Code(s): D64.9 - Anemia, unspecified Plan Some ability no classical reese. Attempting to help patient process recent overdose and cognitive dysfunction. Discussed different discharge potential options and what was realistic. Patient did not respond to Latuda or Vraylar continues on Depakote ammonia level okay 03/10: added Hydroxyzine PRN anxiety, should be monitored closely due to side effects in elderly pts 03/11: no change - primary team may review and hold Hydroxyzine - patient aware 03/13/2025 Patient is scheduled for discharge tomorrow continue Dorinda Depakote olanzapine. Discussed with patient consideration of retesting in a few months to see if she has been able to improve further regarding her cognitive skills Plan to discharge to residential facility near her sister on [facility] tomorrow as possible 03/14/2025 Patient referred to residential facility plan to transferred tomorrow morning at 10:30 strongly urged re-evaluation of cognitive status and need for ongoing SNF level of care as patient has been regaining function status post overdose Patient educated on: diagnosis and medical condition Informed Consent: further education needed Reason for continued inpatient stay Substantial Risk for: inability to function and stable for discharge (Discharge in a.m.) Time Spent With Patient Time: Total time managing care of this patient today _35___ minutes.
[2025-03-14 21:53] VITALS: BP 126/72; PULSE 66
[2025-03-15 08:00] VITALS: BP 141/82; PULSE 57; RESP 16; TEMP 36.5; O2SAT 99
[2025-03-15] MEDS: methADONE HCl 20 MG/2 ML ORAL.CONC 25 MG PO (08:16)
--- NOTE | 2025-03-15 10:15 | PM.PSYDC ---
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 hospital but not current month/day/and year. She says she does not need Nicotine patch or gum. Patient is visible, attended groups, appears confusing but not much compared to last coouple of days. Case discuss with [facility] regarding confusion/delirium. Ordered some more labwork to rule out BP seems in better control today. Plan: Admitted to [facility] psych unit for safety and stabilization Legal Status: CV Meds: Resume valproic acid 1000 mg qhs and olanzapine at 7.5 mg qhs + 7.5 mg bid prn for agitation (started at [facility]) Will lower clonazepam dose from home dose of .5 mg bid prn to 0.25 mg bid prn for now, given pt's ongoing confusion. Dose can be titrated back up to .5 mg when mental status improves if clinically appropriate. Continue home meds including: clonidine .2 mg tid prn for anxiety with holding parameters gabapentin 600 mg tid (for chronic pain) methadone 27 mg qd (rx'd for chronic pain) pantoprazole 40 mg bid propranolol 20- mg bid spironolactone 50 mg qd valsartan 80 mg qd albuterol 90 mcg 2 puff q 4 hrs prn for wheezing atorvastatin 80 mg qd Ordered EKG to monitor QTc (had been prolonged at [facility] and then normalized) Ordered ammonia level with the Depakote. VPA was started on VPA at [facility] Obtain collateral information from family/providers: family meeting on 02/07/25. Discharge planning 02/13/25 pts pcp relates that patient did not show signs of significant cognitive impairment when she was last seen a month ago prior to recent overdose. Discussed EEG question of brain CT SPECT try and clarify diagnosis. 02/15/2025 Try and taper gabapentin see if contributing factor to confusion start Aricept and Namenda. Thiamine patient with history of alcohol use disorder. Not overly manic or depressed apprehensive. Continue discharge planning with social work 02/16/2025 Patient is started on Aricept and Namenda. Some gradual improvement in memory and attention continue Depakote no significant mood cycling patient can not really clarify exact events prior to suicide attempt. 02/17: continue current management and treatment plan. 02/17: continue current management and treatment plan. 02/19/25 Pt seen namenda may be inc anxiety and inc bp lower namenda 5 mg daily inc valsartan d/c planning 02/20/2025 Patient seen psychiatric follow-up. Patient feeling overwhelmed not sure where she can live know she can not live alone. Continues to generally be out milieu. Blood pressure is stabilized if continues stable increase Namenda by b.i.d. Namenda can increase blood pressure 02/22/2025 Latuda started. Discussion patient then sister regard from placement options patient usually pleasant and cooperative does overwhelmed and disorganized at times in group settings and activities can lose train of thought monitor response to Latuda 02/23/2025 Continue Latuda discharge planning. May need to be alf facility setting continue plan of care no new medical concerns 02/25: Continue current tx plan 02/26/2025 Continue Namenda Aricept seem to become more anxious at higher doses Namenda. Continues on gabapentin Depakote has been on these chronically including olanzapine. Chronic use of methadone. Plan for referral to long-term care patient needs lot of reassurance support intermittently distraught 02/28/2025 Continue plan of care check Depakote level Latuda discontinued secondary to tremor and agitation 03/01/2025 Continue plan of care Depakote level unremarkable Latuda discontinued patient with periods of anxiety otherwise social and engaged patient reports history of past anemia. 03/03/25: Meet with patient in assigned room, she is eating snack. Report feeling less anxious and depressed. She is aware of discharge placement, She says that she wants to be around people and feel safe that way in assisted living environment. She says i like it here. I like people here . Denies SI/SIB/HI/AVH. Appear less confused. Mood is pretty good . Report chronic leg pain 10/03. Nursing report this afternoon, patient had an unwitnessed fall in the bathroom. Hospitalist seen patient and ordered some diagnostic tests/labs. Per hospitalist note: CTA of head and C-spine negative for acute abnormality, fracture, or malalignment. Blood work unremarkable including increased H&H from prior. No electrolyte abnormalities. Renal function baseline. Lactic acid WNL. CPK not elevated. Orthostatics negative. UA still pending. Pt fall likely secondary to polypharmacy specialist pt has been undergoing recent medication changes and experiencing weakness side effect. Would suggest reducing propanalol back to 20mg bid. If propranolol being used to control essential tremors, can consider other alternatives such as pramipexole or primidone . 03/04/25: Patient reports I feel fine . She does not know what happened yesterday and how she fell I am not sure . Patient says she might just fainted as it happened in the past. Educated regarding changing position slowly and feeling her body before walking. Denies dizziness, denies ROWE, SOB or pain. Patient says she is worry about future and asks this provider where and when she will be discharged. Denies other safety. Per nursing, patient slept for 8 hours, was compliant with meds and meal. 03/05/2025 Patient was increasingly labile today when discussing discharge plan to long-term care placement in tried to discuss this did not necessarily have to mean permanent. Patient does seem to have improved verbal fluency in improved memory is still significantly limited but she is aware and to know that she would prefer not to have a alf facility placement and this has become out of contention. Case was reviewed with social work discussed issues with patient's sister. Patient did ask to see if we could taper down any medications that might be causing any real contributing to difficulty with alertness verbal fluency access to memory and cognitive impairment. Will try to lower methadone increase Namenda check lumbosacral spine film Patient requires continuous hospitalization at this time 03/06/2025 Patient needs help processing her current need continue Depakote olanzapine consider Marcielaelijah Frazier (4) HTN (hypertension): Status: Acute Code(s): I10 - Essential (primary) hypertension (5) Anemia: 03/10: added Hydroxyzine PRN anxiety, should be monitored closely due to side effects in elderly pts 03/11: no change - primary team may review and hold Hydroxyzine - patient aware 03/13/2025 Patient is scheduled for discharge tomorrow continue Dorinda Depakote olanzapine. Discussed with patient consideration of retesting in a few months to see if she has been able to improve further regarding her cognitive skills Plan to discharge to alf facility near her sister on the [facility] tomorrow as possible 03/14/2025 Patient referred to alf facility plan to transferred tomorrow morning at 10:30 strongly urged re-evaluation of cognitive status and need for ongoing SNF level of care as patient has been regaining function status post overdose Patient educated on: diagnosis and medical condition Informed Consent: further education needed Reason for continued inpatient stay Substantial Risk for: inability to function and stable for discharge (Discharge in a.m.) The patient was admitted status post severe delirium her baseline cognitive state was not totally clear. Patient knew her name on admission but could not really describe her living situation what had led her to take an overdose what town she was living in. The patient was continued on Depakote for anxiety mood instability reported bipolar 2 continued on sertraline and olanzapine. The patient at times would get easily frustrated and overwhelmed when she could not reach her family in regarding referral to alf facility She was seen by PT who recommended physical and cognitive rehab. She was referred to alf facility that also had rehab. Patient at times did have catastrophic reactions to that referral. She had been placed on Aricept and Namenda to help with cognition. This is off-label the patient does not have classic Alzheimer's nor was she being treated for dementia prior to admission does appear she most likely suffered a hypoxic event prior to admission. Brain SPECT did show some low fro flow in the frontal lobes. Brain MRI showed some mild volume depletion and mild vascular changes. Over the course of this admission by the time of discharge patient was awake and alert her short-term memory had been significantly improved. She knew she was at [facility] she knew she was being treated by Dr. Almendarez she knew the president was in the prior president she was able to remember prior to discharge this circumstances of her living situation where she said she was supposed to be getting 40 [employer] hours and was really not having any [employer] management. I would recommend psychiatric follow-up in the alf facility setting and would recommend repeat neurocognitive evaluation in a month or 2 as he should be able to be eventually discharged to a rest home or assisted living setting. She does have a chronic mood disorder and did make a suicide attempt prior to admission. She was future oriented at time of discharge she was generally not overly depressed there were no psychotic symptoms. She could become quite reactive especially when feeling region did or in relationship to alf facility placement. She will be near her sister who is her healthcare proxy. It may be poss ible at some point that the patient will can regain capacity to make her own decisions and this kept in mind Neuropsych testing might be helpful again at some point initial Mcclain was quite low would follow this. In addition to physical therapy in addressing chronic pain issues should have psychiatric follow-up for mood disorder. Would benefit from counseling as available Time Spent with Patient Time attestation: Total time managing care of this patient today __45__ minutes. Time spent: Greater than 30 minutes Discharge Plan Discharge Anticipated Discharge Date/Time: 03/15/25 10:30 Patient Disposition: Xfer SNF Discharge Diagnosis: bipolar disorder 2 neurocognitive disorder s/p overdose spinal stenosis chronic pain alcohol use dx familial tremor htn anemia Referrals: [facility] [Other] - 1 Week Discharge Medications: New clonidine HCl 0.1 mg Tablet 0.1 mg PO TID PRN (Reason: Anxiety) Qty: 0 0RF Protocol: Hold for SBP< HOLD for SBP < : 90 acetaminophen 325 mg Tablet 650 mg PO Q6H PRN (Reason: Headache/Pain, Scale 1-10) Qty: 0 0RF donepezil 10 mg Tablet 10 mg PO DAILY Qty: 0 0RF gabapentin 400 mg Capsule 400 mg PO TID Qty: 0 0RF divalproex 500 mg Tablet Extended Release 24 Hr 1,000 mg PO BEDTIME Qty: 0 0RF hydroxyzine HCl 25 mg Tablet 25 mg PO Q8H PRN (Reason: Anxiety) Qty: 0 0RF methadone [Methadose] 10 mg/mL Concentrate 25 mg PO DAILY Qty: 1000 0RF Rx Instructions: Partial Fill upon patient request. valsartan 40 mg Tablet 120 mg PO DAILY Qty: 0 0RF Protocol: Hold for SBP< HOLD for SBP < : 90 memantine 5 mg Tablet 5 mg PO DAILY Qty: 0 0RF sennosides [Senna Lax] 8.6 mg Tablet 17.2 mg PO BEDTIME Qty: 0 0RF olanzapine 5 mg Tablet 5 mg PO BEDTIME PRN (Reason: agitation) Qty: 0 0RF olanzapine 5 mg Tablet 5 mg PO BEDTIME Qty: 0 0RF magnesium hydroxide [Milk of Magnesia] 400 mg/5 mL Suspension 30 ml PO DAILY PRN (Reason: Constipation) Qty: 0 0RF docusate sodium 100 mg Capsule 100 mg PO BID Qty: 0 0RF MAG-AL 200-200 mg/5 mL Suspension 30 ml PO Q6H PRN (Reason: Heartburn/Nausea) Qty: 0 0RF cholecalciferol (vitamin D3) 25 mcg (1,000 unit) Tablet 25 mcg PO DAILY Qty: 0 0RF thiamine mononitrate (vit B1) 100 mg Tablet 100 mg PO DAILY Qty: 0 0RF propranolol 20 mg Tablet 20 mg PO TID Qty: 0 0RF Protocol: Hold for SBP/HR < HOLD for SBP < : 90 HOLD for HR < : 60 Continued atorvastatin 80 mg tablet 80 mg PO DAILY pantoprazole 40 mg tablet,delayed release (DR/EC) 40 mg PO BID albuterol sulfate [Ventolin HFA] 90 mcg/actuation HFA aerosol inhaler 2 puff INHALATION Q4H PRN (Reason: wheezing) spironolactone 50 mg tablet 50 mg PO DAILY clonazepam 0.5 mg tablet 0.5 mg PO BID PRN (Reason: Anxiety) 30 Days Qty: 60 1RF Discontinued methadone 5 mg Tablet 27 mg PO DAILY gabapentin 600 mg tablet 600 mg PO TID valsartan 80 mg tablet 80 mg PO DAILY propranolol 20 mg tablet 20 mg PO BID clonidine HCl 0.2 mg tablet 0.2 mg PO TID PRN (Reason: Anxiety) Discharge Orders: Discharge Order (Routine); Ordered 03/15/25 Ordered By: Lawrence Almendarez Diet: Advance to usual diet Activity on Discharge: As tolerated Stand Alone Forms: Patient Portal Discharge page Print Language: Citizen Of [place] Care Plan Goals: maintain stable mood engage in physical and cognitive rehab Health Concerns: htn spinal stenosis neurocognitive dx s/p overdose gait disturbance anemia Plan of Treatment: rehab setting namenda for memory and attention aricept depakote sertraline olanzapine for mood engage in physical and cognitive activities STRONGLY URGE REGULAR REEVALUATION OIF NEED FOR SNF ? assisted living ? rest home PT SHOWING GRADUAL IMPROVENENT IN COGNITION can inc namenda suggest gi workup for anemia monitor hct Assessment: alert mood anxious ruminating worried re future no si no psychosis ambulating independently, slowed intermittant tremor
== END 2025-03-15 11:35 | disposition skilled nursing facility (03) | DRG 885 ==
PROVIDERS: Nurse Practitioner Family; Nurse Practitioner Psychiatric/Mental Health; Physician Assistant; Psychiatry & Neurology Psychiatry; Student in an Organized Health Care Education/Training Program; Admitting Provider Social Worker; Visit Provider Psychiatry & Neurology Psychiatry
DX: F31.30 Bipolar disorder, current episode depressed, mild or moderate severity, unspecified (principal); Z59.02 Unsheltered homelessness; F05 Delirium due to known physiological condition; M54.59 Other low back pain; G89.29 Other chronic pain; F03.90 Unspecified dementia, unspecified severity, without behavioral disturbance, psychotic disturbance, mood disturbance, and anxiety; J44.9 Chronic obstructive pulmonary disease, unspecified; W19.XXXA Unspecified fall, initial encounter; M41.56 Other secondary scoliosis, lumbar region; M48.061 Spinal stenosis, lumbar region without neurogenic claudication; Y92.231 Patient bathroom in hospital as the place of occurrence of the external cause; D64.9 Anemia, unspecified; G62.9 Polyneuropathy, unspecified; K59.00 Constipation, unspecified; I10 Essential (primary) hypertension; E78.5 Hyperlipidemia, unspecified; K21.9 Gastro-esophageal reflux disease without esophagitis; Z91.51 Personal history of suicidal behavior; Z79.891 Long term (current) use of opiate analgesic; Z79.899 Other long term (current) drug therapy
CPT/HCPCS: 36415; 70450; 70551; 72100; 72125; 78803; 80048; 80053; 80061; 80164; 81001; 82140; 82272; 82306; 82550; 82607; 82746; 82947; 83036; 83540; 83605; 84443; 85007; 85025; 85027; 85045; 85652; 86140; 86780; 87086; 87389; 93005; 95816; 97161; A9557

== ENCOUNTER 2025-02-01 20:08 | Outpatient (BNV) | payer MEDICARE, MEDICAID, SELFPAY | END 2025-03-06 12:07 | PROVIDERS: Admitting Provider Social Worker; Visit Provider Radiology Diagnostic Radiology | DX: M51.360 Other intervertebral disc degeneration, lumbar region with discogenic back pain only (principal); M41.86 Other forms of scoliosis, lumbar region; M47.816 Spondylosis without myelopathy or radiculopathy, lumbar region | CPT/HCPCS: 72100 ==

== ENCOUNTER 2025-02-01 20:08 | Outpatient (BNV) | payer MEDICARE, MEDICAID, SELFPAY | END 2025-02-15 14:22 | PROVIDERS: Admitting Provider Social Worker; Visit Provider Radiology Diagnostic Radiology | DX: G93.89 Other specified disorders of brain (principal) | CPT/HCPCS: 78803 ==

== ENCOUNTER 2025-02-01 20:08 | Outpatient (BNV) | payer MEDICARE, MEDICAID, SELFPAY | END 2025-02-14 10:30 | PROVIDERS: Admitting Provider Social Worker; Visit Provider Psychiatry & Neurology Neurology | DX: R41.82 Altered mental status, unspecified (principal) | CPT/HCPCS: 95816 ==

== ENCOUNTER 2025-02-01 20:08 | Outpatient (BNV) | payer MEDICARE, MEDICAID, SELFPAY | END 2025-02-09 15:21 | PROVIDERS: Admitting Provider Social Worker; Visit Provider Radiology Diagnostic Radiology | DX: I67.82 Cerebral ischemia (principal); R90.82 White matter disease, unspecified | CPT/HCPCS: 70551 ==

== ENCOUNTER 2025-02-01 20:08 | Outpatient (BNV) | payer MEDICARE, MEDICAID, SELFPAY | END 2025-03-03 14:14 | PROVIDERS: Admitting Provider Social Worker; Visit Provider Internal Medicine Cardiovascular Disease | DX: R00.1 Bradycardia, unspecified (principal) | CPT/HCPCS: 93010 ==

== ENCOUNTER 2025-02-01 20:08 | Outpatient (BNV) | payer MEDICARE, MEDICAID, SELFPAY | END 2025-03-02 08:00 | PROVIDERS: Admitting Provider Social Worker; Visit Provider Internal Medicine Cardiovascular Disease | DX: R00.1 Bradycardia, unspecified (principal) | CPT/HCPCS: 93010 ==

== ENCOUNTER → 2025-02-01 20:08 | Outpatient (BNV) | payer MEDICARE, MEDICAID, SELFPAY | PROVIDERS: Admitting Provider Social Worker; Visit Provider Psychiatry & Neurology Psychiatry | DX: F31.32 Bipolar disorder, current episode depressed, moderate (principal); F05 Delirium due to known physiological condition; T50.902A Poisoning by unspecified drugs, medicaments and biological substances, intentional self-harm, initial encounter | CPT/HCPCS: 90792 ==

== ENCOUNTER → 2025-02-01 20:08 | Outpatient (BNV) | payer MEDICARE, MEDICAID, SELFPAY | PROVIDERS: Admitting Provider Social Worker; Visit Provider Nurse Practitioner Family | DX: I10 Essential (primary) hypertension (principal) | CPT/HCPCS: 99221 ==

== ENCOUNTER → 2025-02-01 20:08 | Outpatient (BNV) | payer MEDICARE, MEDICAID, SELFPAY | PROVIDERS: Admitting Provider Social Worker; Visit Provider Psychiatry & Neurology Neurology | DX: F03.90 Unspecified dementia, unspecified severity, without behavioral disturbance, psychotic disturbance, mood disturbance, and anxiety (principal) | CPT/HCPCS: 99222 ==

== ENCOUNTER → 2025-02-01 20:08 | Outpatient (BNV) | payer MEDICARE, MEDICAID, SELFPAY | PROVIDERS: Admitting Provider Social Worker; Visit Provider Psychiatry & Neurology Psychiatry | DX: F05 Delirium due to known physiological condition (principal); F31.30 Bipolar disorder, current episode depressed, mild or moderate severity, unspecified; T50.902A Poisoning by unspecified drugs, medicaments and biological substances, intentional self-harm, initial encounter | CPT/HCPCS: 99232 ==